=== PATIENT | female | born 1985 | race African-American/Black ===

== ENCOUNTER 2016-11-04 11:34 | Emergency (ER) | payer BC ==
[~2016-11-04] VITALS: Ht 157.5 cm; Wt 100.0 kg
[~2016-11-04 11:34] MED LIST: ALBU0.086 INH; LORA-392 PO; PRED20 PO; VENL75 PO; VENTAER INH
[2016-11-04] MEDS ORDERED: SODIUM CHLOR 0.9% 1000 ML INJ 1,000 ML IV SCH (11:42)
[2016-11-04] MEDS ORDERED: ACETAMINOPHEN 325 MG TAB PO ONE (11:45)
[2016-11-04] MEDS ORDERED: SODIUM CHLORIDE 0.9% FLUSH 5 ML FLUSH IVF PRN (11:45)
[2016-11-04 11:49] VITALS: BP 163/74; PULSE 81; RESP 18; TEMP 94.6
--- NOTE | 2016-11-04 11:56 | PD ---
HPI Chief Complaint: abdominal pain Time Seen by Provider: 11:50 Travel History International Travel<30 days: No Contact w/Intl Traveler<30days: No Traveled to known affect area: No History of Present Illness HPI 31 year-old female with history of fibromyalgia presents to the emergency room via ambulance for evaluation of nausea, vomiting, abdominal pain, chills, and lethargy for the past several hours. 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 States she became nauseous and went to the bathroom to try to have a bowel movement. She was unsuccessful. States shortly afterward she felt like she was going to pass out and laid down on the ground and called for help. Her coworkers called the ambulance. Patient denies an actual syncopal episode. States she vomited 2 times. Vomit was nonbloody, nonbilious. EVAC gave her 4 of Zofran which she states improved her symptoms. Patient denies any other chronic medical conditions or daily medications. Abdominal pain is periumbilical without radiation. Worse with palpation. PFSH Past Medical History Asthma: Yes Cancer: No Cardiovascular Problems: No Diabetes: No Headaches: No Psychiatric: Yes (depression, anxiety) Seizures: No Social History Alcohol Use: No Tobacco Use: Yes Substance Use: No Allergies-Medications (Allergen,Severity, Reaction): Coded Allergies: No Known Allergies (Unverified , 04/24/15) Reported Meds & Prescriptions Reported Meds & Active Scripts Active Zofran Odt (Ondansetron Odt) 4 Mg Tab 4 Mg SL Q6HR PRN Cipro (Ciprofloxacin HCl) 500 Mg Tab 500 Mg PO BID 7 Days Reported Tramadol (Tramadol HCl) 50 Mg Tab 50 Mg PO BID PRN Effexor (Venlafaxine HCl) 75 Mg Tab 75 Mg PO DAILY Ativan (Lorazepam) 1 Mg Tab 1 Mg PO BID Ventolin Hfa 18 GM Inh (Albuterol Sulfate) 90 Mcg/Act Aer 2 Puff INH Q4H PRN Albuterol Neb (Albuterol Sulfate) 2.5 Mg/3 Ml Neb 2.5 Mg NEB Q4HR NEB PRN Review of Systems Except as stated in HPI: all other systems reviewed are Neg Physical Exam Narrative GENERAL: Well-developed, obese female in no acute distress. Afebrile. SKIN: Warm and dry. HEAD: Atraumatic. Normocephalic. EYES: Pupils equal and round. No scleral icterus. No injection or drainage. NECK: Trachea midline. No JVD. CARDIOVASCULAR: Regular rate and rhythm. No murmur appreciated. RESPIRATORY: No accessory muscle use. Clear to auscultation. Breath sounds equal bilaterally. GASTROINTESTINAL: Abdomen soft, nondistended. Hepatic and splenic margins not palpable. Abdomen mildly tender to palpation over the umbilical region. Reports mild left lower quadrant tenderness to palpation. NEUROLOGICAL: Awake and alert. No obvious cranial nerve deficits. Motor grossly within normal limits. Normal speech. PSYCHIATRIC: Appropriate mood and affect; insight and judgment normal. Data Data Last Documented VS Vital Signs Date Time Temp Pulse Resp B/P Pulse Ox O2 Delivery O2 Flow Rate FiO2 11/04/16 16:30 99.5 83 18 161/85 97 11/04/16 15:02 Room Air Orders Complete Blood Count With Diff (11/04/16 11:42) Comprehensive Metabolic Panel (11/04/16 11:42) Lipase (11/04/16 11:42) Lactic Acid (11/04/16 11:42) Prothrombin Time / Inr (Pt) (11/04/16 11:42) Act Partial Throm Time (Ptt) (11/04/16 11:42) Urinalysis - C+S If Indicated (11/04/16 11:42) Ct Abd/Pel W Iv Contrast(Rout) (11/04/16 11:42) Iv Access Insert/Monitor (11/04/16 11:42) Ecg Monitoring (11/04/16 11:42) Oximetry (11/04/16 11:42) Sodium Chlor 0.9% 1000 Ml Inj (Ns 1000 M (11/04/16 11:42) Sodium Chloride 0.9% Flush (Ns Flush) (11/04/16 11:45) Electrocardiogram (11/04/16 11:42) Ed Urine Pregnancytest Poc (11/04/16 11:42) Acetaminophen (Tylenol) (11/04/16 11:45) Blood Culture (11/04/16 12:12) Influenzae A/B Antigen (11/04/16 12:49) Urine Culture (11/04/16 13:11) Iohexol 350 Inj (Omnipaque 350 Inj) (11/04/16 14:19) Lactic Acid (11/04/16 15:20) Labs Laboratory Tests Test 11/04/16 11/04/16 12:50 13:11 White Blood Count 8.8 TH/MM3 Red Blood Count 5.25 MIL/MM3 Hemoglobin 10.9 GM/DL Hematocrit 34.2 % Mean Corpuscular Volume 65.1 FL Mean Corpuscular Hemoglobin 20.7 PG Mean Corpuscular Hemoglobin 31.9 % Concent Red Cell Distribution Width 17.8 % Platelet Count 362 TH/MM3 Mean Platelet Volume 8.0 FL Neutrophils (%) (Auto) 78.8 % Lymphocytes (%) (Auto) 15.6 % Monocytes (%) (Auto) 4.2 % Eosinophils (%) (Auto) 1.0 % Basophils (%) (Auto) 0.4 % Neutrophils # (Auto) 6.9 TH/MM3 Lymphocytes # (Auto) 1.4 TH/MM3 Monocytes # (Auto) 0.4 TH/MM3 Eosinophils # (Auto) 0.1 TH/MM3 Basophils # (Auto) 0.0 TH/MM3 CBC Comment AUTO DIFF Differential Comment AUTO DIFF CONFIRMED Platelet Estimate NORMAL Platelet Morphology Comment NORMAL Target Cells 1+ Tear Drop Cells 1+ Prothrombin Time 10.9 SEC Prothromb Time International 1.0 RATIO Ratio Activated Partial 22.8 SEC Thromboplast Time Sodium Level 140 MEQ/L Potassium Level 3.5 MEQ/L Chloride Level 106 MEQ/L Carbon Dioxide Level 24.1 MEQ/L Anion Gap 10 MEQ/L Blood Urea Nitrogen 10 MG/DL Creatinine 0.70 MG/DL Estimat Glomerular Filtration 119 ML/MIN Rate Random Glucose 104 MG/DL Lactic Acid Level 2.1 mmol/L Calcium Level 9.0 MG/DL Total Bilirubin 0.1 MG/DL Aspartate Amino Transf 12 U/L (AST/SGOT) Alanine Aminotransferase 28 U/L (ALT/SGPT) Alkaline Phosphatase 138 U/L Total Protein 7.9 GM/DL Albumin 3.8 GM/DL Lipase 354 U/L Urine Color YELLOW Urine Turbidity HAZY Urine pH 5.0 Urine Specific [place] 1.023 Urine Protein TRACE mg/dL Urine Glucose (UA) NEG mg/dL Urine Ketones NEG mg/dL Urine Occult Blood NEG Urine Nitrite NEG Urine Bilirubin NEG Urine Urobilinogen LESS THAN 2.0 MG/DL Urine Leukocyte Esterase MOD Urine RBC 1 /hpf Urine WBC 4 /hpf Urine Squamous Epithelial 8 /hpf Cells Urine Bacteria MANY /hpf Urine Hyaline Casts 4 /lpf Urine Mucus FEW /lpf Microscopic Urinalysis Comment CULTURE INDICATED MDM Medical Decision Making Medical Screen Exam Complete: Yes Emergency Medical Condition: Yes Medical Record Reviewed: Yes Differential Diagnosis Gastroneuritis versus appendicitis versus diverticulosis Narrative Course 31-year-old female presents to the emergency room via ambulance for evaluation of nausea, vomiting, and weakness/near-syncope since this morning. Symptoms started abruptly. She has mild associated periumbilical pain. Abdomen soft, tender to palpation in the umbilical region but no peritoneal signs. Initial temperature was 94.6 rectally. Recheck was 99.5 orally. Vital signs otherwise stable. IV access established and basic labs obtained. Patient given 1 L of fluids and Tylenol. CBC and CMP are unremarkable. Lactic acid is slightly elevated at 2.1. UA shows evidence of infection with moderate leukocyte esterase and many bacteria. CT is negative. Rapid flu is negative. Given initial temperature and elevated lactic acid, blood cultures were drawn. I had my attending physician, Dr. Xiong, assessed the patient and agree she is stable for discharge. Patient will be discharged with prescription for urinary tract infection and told to follow up with the primary care physician and return for worsening symptoms. She understands and agrees to plan. Referrals: Primary Care Physician Scripts Ondansetron Odt (Zofran Odt)4 Mg Tab4 Mg SL Q6HR PRN (Nausea/Vomiting) #5 TAB Ref 0 Prov:Iftikhar Xiong MD 11/04/16 Ciprofloxacin (Cipro)500 Mg Tak717 Mg PO BID 7 Days Ref 0 Prov:Iftikhar Xiong MD 11/04/16 Disposition: 01 DISCHARGE HOME Condition: Stable Treva Mahoney Nov 04, 2016 11:56
[2016-11-04] MEDS ORDERED: VENL75TA PO (12:16)
[2016-11-04] MEDS ORDERED: VENTAER INH (12:16)
[2016-11-04] MEDS ORDERED: TRAM50TA PO (12:16)
[2016-11-04] MEDS ORDERED: ALBU0.08 NEB (12:16)
[2016-11-04] MEDS ORDERED: LORA-474 PO (12:16)
[2016-11-04 13:09] VITALS: O2SAT 96
[2016-11-04 13:11] VITALS: BP 159/83; PULSE 85; RESP 18; O2SAT 99
[2016-11-04 13:13] LABS: AUTOMATED NEUTROPHIL # 6.9 TH/MM3 (1.8-7.7); BASOPHIL % 0.4 % (0.0-2.0); EOSINOPHIL # 0.1 TH/MM3 (0-0.4); HEMATOCRIT 34.2 % (35.0-46.0); LYMPH % 15.6 % (9.0-44.0); LYMPHOCYTE # 1.4 TH/MM3 (1.0-4.8); MEAN CELL VOLUME 65.1 FL (80.0-100.0); MEAN CORPUSCULAR HEMOGLOBIN 20.7 PG (27.0-34.0); MEAN CORPUSCULAR HGB CONC 31.9 % (32.0-36.0); MONO % 4.2 % (0.0-8.0); NEUT % 78.8 % (16.0-70.0); PLATELET COUNT 362 TH/MM3 (150-450); RED BLOOD COUNT 5.25 MIL/MM3 (4.00-5.30); RED CELL DISTRIBUTION WIDTH 17.8 % (11.6-17.2); WHITE BLOOD COUNT 8.8 TH/MM3 (4.0-11.0)
[2016-11-04 13:14] LABS: APTT (PATIENT) 22.8 SEC (24.3-30.1); PROTHROMBIN TIME - PATIENT 10.9 SEC (9.8-11.6)
[2016-11-04 13:18] LABS: HEMO FLAGS AUTO DIFF
[2016-11-04 13:22] LABS: ANION GAP 10 MEQ/L (5-15); AST (GOT) 12 U/L (15-37); BICARBONATE 24.1 MEQ/L (21.0-32.0); BLOOD UREA NITROGEN 10 MG/DL (7-18); CHLORIDE 106 MEQ/L (98-107); GLOMERULAR FILTRATION RATE 119 ML/MIN (>89); POTASSIUM 3.5 MEQ/L (3.5-5.1); SODIUM (NA) 140 MEQ/L (136-145)
[2016-11-04 13:25] LABS: ALKALINE PHOSPHATASE 138 U/L (45-117); ALT (GPT) 28 U/L (10-53); TOTAL BILIRUBIN ADULT 0.1 MG/DL (0.2-1.0)
[2016-11-04 13:41] LABS: BACTERIA, URINE MANY /hpf; BLOOD, URINE NEG (NEG); GLUCOSE,URINE NEG (NEG); HYALINE CAST, URINE 4 /lpf (RARE); KETONE, URINE NEG (NEG); MUCUS URINE FEW /lpf (OCC); NITRITE,URINE NEG (NEG); SQUAMOUS EPITHELIAL CELL URINE 8 /hpf (0-5); URINE COLOR YELLOW (YELLW/STRAW)
[2016-11-04 13:52] LABS: COMMENT (UR) CULTURE INDICATED; CULTURE IF INDICATED CULTURE INDICATED
[2016-11-04 13:52] LABS: PLATELET ESTIMATE SMEAR NORMAL (NORMAL); PLATELET MORPHOLOGY NORMAL (NORMAL); SCAN/DIFF AUTO DIFF CONFIRMED
[2016-11-04 13:53] LABS: TARGET CELLS 1+ (NORMAL); TEARDROP RBCS 1+ (NORMAL)
[2016-11-04] MEDS ORDERED: IOHEXOL 350 MG/ML 10 ML VIAL (for RAD DIAG) IV ONE (14:19)
--- NOTE | 2016-11-04 14:59 | RADRPT ---
EXAM DATE/TIME: 11/04/2016 14:00 [facility] COMPARISON: No previous studies available for comparison. INDICATIONS : Periumbilical pain with nausea and vomiting. IV CONTRAST: 90 cc Omnipaque 350 (iohexol) IV ORAL CONTRAST: No oral contrast ingested. RADIATION DOSE: 12.02 CTDIvol (mGy) MEDICAL HISTORY : None SURGICAL HISTORY : None. ENCOUNTER: Initial ACUITY: 1 day PAIN SCALE: 4/10 LOCATION: Bilateral lower quadrant TECHNIQUE: Volumetric scanning of the abdomen and pelvis was performed. Using automated exposure control and adjustment of the mA and/or kV according to patient size, radiation dose was kept as low as reasonably achievable to obtain optimal diagnostic quality images. FINDINGS: LOWER LUNGS: The visualized lower lungs are clear. LIVER: Homogeneous density without lesion. There is no dilation of the biliary tree. No calcifi ed gallstones. SPLEEN: Normal size without lesion. PANCREAS: Within normal limits. KIDNEYS: Normal in size and shape. There is no mass, stone or hydronephrosis. ADRENAL GLANDS: Within normal limits. VASCULAR: There is no aortic aneurysm. BOWEL/MESENTERY: The stomach, small bowel, and colon demonstrate no acute abnormality. There is no free intraperitoneal air or fluid. There is a large stool burden noted. ABDOMINAL WALL: Within normal limits. RETROPERITONEUM: There is no lymphadenopathy. BLADDER: No wall thickening or mass. REPRODUCTIVE: The endometrium appears diffusely thickened. Given the patient's age this may be wi thin normal limits. INGUINAL: There is no lymphadenopathy or hernia. MUSCULOSKELETAL: Within normal limits for patient age. CONCLUSION: #1. No evidence of inflammatory process within the abdomen or pelvis. No evidence of umbilical hernia or stone. #2. Large stool burden is noted. #3. Thickening of the endometrium which given the patient's age may be normal. Correlate with the pat ient's LMP. Melani Dumont MD on November 04, 2016 at 14:55 Board Certified Radiologist. This report was verified electronically.
[2016-11-04 15:02] VITALS: BP 141/70; PULSE 88; RESP 18; O2SAT 98
[2016-11-04] MEDS ORDERED: ZOFR4TAB3 SL (15:15)
[2016-11-04] MEDS ORDERED: CIPR-9 PO (15:15)
--- NOTE | 2016-11-04 15:15 | PD ---
Physical Exam Date Seen by Provider: Nov 04, 2016 Time Seen by Provider: 12:30 Narrative I, Dr. Xiong, have reviewed the advance practice practitioner's documentation and am in agreement, met with the patient face to face, made the diagnosis, and the medical decision making was done by me. *My assessment and Findings: Patient seen and evaluated with PA, please see PA umu for further details. Here with nausea, chills, lethargy. On evaluation, vital signs are stable in the ER. Abdomen is benign and I do not suspect an acute intra-abdominal process. Patient has no meningeal signs. EKG did not show any signs of significant dysrhythmias. No signs of prolongation of QT or QRS prolongation. Laboratory Tests Test 11/04/16 11/04/16 12:50 13:11 Hemoglobin 10.9 GM/DL (11.6-15.3) Hematocrit 34.2 % (35.0-46.0) Mean Corpuscular Volume 65.1 FL (80.0-100.0) Mean Corpuscular Hemoglobin 20.7 PG (27.0-34.0) Mean Corpuscular Hemoglobin 31.9 % Concent (32.0-36.0) Red Cell Distribution Width 17.8 % (11.6-17.2) Neutrophils (%) (Auto) 78.8 % (16.0-70.0) Target Cells 1+ (NORMAL) Tear Drop Cells 1+ (NORMAL) Activated Partial 22.8 SEC Thromboplast Time (24.3-30.1) Lactic Acid Level 2.1 mmol/L (0.4-2.0) Total Bilirubin 0.1 MG/DL (0.2-1.0) Aspartate Amino Transf 12 U/L (15-37) (AST/SGOT) Alkaline Phosphatase 138 U/L (45-117) Urine Turbidity HAZY (CLEAR) Urine Leukocyte Esterase MOD (NEG) Urine Bacteria MANY /hpf (NONE) Urine Mucus FEW /lpf (OCC) CT of the abdomen pelvis did not indicate any significant metabolic issues. At this point, if anything lab work this point to possible early UTI. My plan would be to treat her for UTI and have her follow-up with primary care physician. Return for any worsening in symptoms as necessary. The plan was discussed with her and she states understanding. Data Data Last Documented VS Vital Signs Date Time Temp Pulse Resp B/P Pulse Ox O2 Delivery O2 Flow Rate FiO2 11/04/16 15:02 88 18 141/70 98 Room Air 11/04/16 11:49 94.6 Orders Complete Blood Count With Diff (11/04/16 11:42) Comprehensive Metabolic Panel (11/04/16 11:42) Lipase (11/04/16 11:42) Lactic Acid (11/04/16 11:42) Prothrombin Time / Inr (Pt) (11/04/16 11:42) Act Partial Throm Time (Ptt) (11/04/16 11:42) Urinalysis - C+S If Indicated (11/04/16 11:42) Ct Abd/Pel W Iv Contrast(Rout) (11/04/16 11:42) Iv Access Insert/Monitor (11/04/16 11:42) Ecg Monitoring (11/04/16 11:42) Oximetry (11/04/16 11:42) Sodium Chlor 0.9% 1000 Ml Inj (Ns 1000 M (11/04/16 11:42) Sodium Chloride 0.9% Flush (Ns Flush) (11/04/16 11:45) Electrocardiogram (11/04/16 11:42) Ed Urine Pregnancytest Poc (11/04/16 11:42) Acetaminophen (Tylenol) (11/04/16 11:45) Blood Culture (11/04/16 12:12) Influenzae A/B Antigen (11/04/16 12:49) Urine Culture (11/04/16 13:11) Iohexol 350 Inj (Omnipaque 350 Inj) (11/04/16 14:19) Labs Laboratory Tests Test 11/04/16 11/04/16 12:50 13:11 White Blood Count 8.8 TH/MM3 Red Blood Count 5.25 MIL/MM3 Hemoglobin 10.9 GM/DL Hematocrit 34.2 % Mean Corpuscular Volume 65.1 FL Mean Corpuscular Hemoglobin 20.7 PG Mean Corpuscular Hemoglobin 31.9 % Concent Red Cell Distribution Width 17.8 % Platelet Count 362 TH/MM3 Mean Platelet Volume 8.0 FL Neutrophils (%) (Auto) 78.8 % Lymphocytes (%) (Auto) 15.6 % Monocytes (%) (Auto) 4.2 % Eosinophils (%) (Auto) 1.0 % Basophils (%) (Auto) 0.4 % Neutrophils # (Auto) 6.9 TH/MM3 Lymphocytes # (Auto) 1.4 TH/MM3 Monocytes # (Auto) 0.4 TH/MM3 Eosinophils # (Auto) 0.1 TH/MM3 Basophils # (Auto) 0.0 TH/MM3 CBC Comment AUTO DIFF Differential Comment AUTO DIFF CONFIRMED Platelet Estimate NORMAL Platelet Morphology Comment NORMAL Target Cells 1+ Tear Drop Cells 1+ Prothrombin Time 10.9 SEC Prothromb Time International 1.0 RATIO Ratio Activated Partial 22.8 SEC Thromboplast Time Sodium Level 140 MEQ/L Potassium Level 3.5 MEQ/L Chloride Level 106 MEQ/L Carbon Dioxide Level 24.1 MEQ/L Anion Gap 10 MEQ/L Blood Urea Nitrogen 10 MG/DL Creatinine 0.70 MG/DL Estimat Glomerular Filtration 119 ML/MIN Rate Random Glucose 104 MG/DL Lactic Acid Level 2.1 mmol/L Calcium Level 9.0 MG/DL Total Bilirubin 0.1 MG/DL Aspartate Amino Transf 12 U/L (AST/SGOT) Alanine Aminotransferase 28 U/L (ALT/SGPT) Alkaline Phosphatase 138 U/L Total Protein 7.9 GM/DL Albumin 3.8 GM/DL Lipase 354 U/L Urine Color YELLOW Urine Turbidity HAZY Urine pH 5.0 Urine Specific [place] 1.023 Urine Protein TRACE mg/dL Urine Glucose (UA) NEG mg/dL Urine Ketones NEG mg/dL Urine Occult Blood NEG Urine Nitrite NEG Urine Bilirubin NEG Urine Urobilinogen LESS THAN 2.0 MG/DL Urine Leukocyte Esterase MOD Urine RBC 1 /hpf Urine WBC 4 /hpf Urine Squamous Epithelial 8 /hpf Cells Urine Bacteria MANY /hpf Urine Hyaline Casts 4 /lpf Urine Mucus FEW /lpf Microscopic Urinalysis Comment CULTURE INDICATED MDM Medical Record Reviewed: Yes Supervised Visit with YURI: Yes Diagnosis Primary Impression: Near syncope Additional Impression: URINARY TRACT INFECTION, SITE NOT SPECIFIED Referrals: Primary Care Physician Med/Other Pt SpecificInfo: Prescription(s) given Scripts Ondansetron Odt (Zofran Odt)4 Mg Tab4 Mg SL Q6HR PRN (Nausea/Vomiting) #5 TAB Ref 0 Prov:Iftikhar Xiong MD 11/04/16 Ciprofloxacin (Cipro)500 Mg Acb007 Mg PO BID 7 Days Ref 0 Prov:Iftikhar Xiong MD 11/04/16 Disposition: 01 DISCHARGE HOME Condition: Stable Iftikhar Xiong MD Nov 04, 2016 15:15
[2016-11-04 16:30] VITALS: BP 161/85; TEMP 99.5
--- NOTE | 2016-11-05 21:24 | EKG ---
Date Performed: 11/04/2016 Time Performed: 12:15:19 PTAGE: 31 years EKG: Sinus rhythm NORMAL ECG NO PREVIOUS TRACING DOCTOR: Bob Carolina Interpretating Date/Time 11/05/2016 21:11:59
[2017-03-11] MEDS ORDERED: PREN1CAP7 PO (15:35)
[2017-04-06] MEDS ORDERED: AMOX500C PO (16:08)
[2017-04-08] MEDS ORDERED: AMOX500C PO (08:38)
== END 2016-11-04 16:48 | disposition home or self-care (01) ==
LOC: NEPC 11:34
DX: N39.0 Urinary tract infection, site not specified (principal); F41.8 Other specified anxiety disorders
CPT/HCPCS: 74177; 80053; 81001; 83605; 83690; 84703; 85025; 85610; 85730; 87040; 87086; 87804; 93005; 96360; 99284; J7030; Q9967

== ENCOUNTER 2017-01-18 08:52 | Emergency (ER) | payer SELFPAY ==
[~2017-01-18] VITALS: Ht 154.9 cm; Wt 100.0 kg
[~2017-01-18 08:52] MED LIST changes: +ALBU0.08 NEB; -ALBU0.086 INH; +CIPR-9 PO; -LORA-392 PO; +LORA-474 PO; -PRED20 PO; +TRAM50TA PO; -VENL75 PO; +VENL75TA PO; +ZOFR4TAB3 SL
[2017-01-18 09:01] VITALS: BP 163/85; PULSE 71; RESP 18; RESP 21; TEMP 97.8; O2SAT 100
--- NOTE | 2017-01-18 09:16 | PD ---
HPI Chief Complaint: GI Complaint Time Seen by Provider: 09:15 Travel History International Travel<30 days: No Contact w/Intl Traveler<30days: No Traveled to known affect area: No History of Present Illness HPI 31-year-old female came to the emergency room brought by EMS with history of sudden onset of abdominal pain that started this morning. Patient was awake and it woke her up from her sleep. She got nauseous and went to the bathroom. She was unable to vomit but got dizzy and lightheaded and felt like she was going to pass out. She did out on the floor and called 911. In the meanwhile she had a diarrhea episode and soiled herself. Patient never actually had a syncopal episode. Currently she says the pain is still there and points to her suprapubic area. No radiation of the pain. She is currently on her period. She had a similar pain 3 months ago and was in this emergency room when she had workup as well as CAT scan done. She was supposed to follow up with a [employer]PER[facility] and get an ultrasound which has not happened yet. She said there is a family history of ovarian cyst. [facility] Past Medical History Narrative Medical List of her past medical, surgical, social and family history was reviewed from the nursing note. Asthma: Yes Cancer: No Cardiovascular Problems: Yes (HTN ) Diabetes: No Fibromyalgia: Yes Headaches: No Psychiatric: Yes (depression, anxiety) Seizures: No ?: Not LMP: NOW Social History Alcohol Use: No Tobacco Use: Yes (/2 ppd) Substance Use: No Allergies-Medications (Allergen,Severity, Reaction): Coded Allergies: No Known Allergies (Unverified , 01/18/17) Comments No known drug allergies. Reported Meds & Prescriptions Reported Meds & Active Scripts Active Zofran Odt (Ondansetron Odt) 4 Mg Tab 4 Mg SL Q6HR PRN Cipro (Ciprofloxacin HCl) 500 Mg Tab 500 Mg PO BID 7 Days Reported Tramadol (Tramadol HCl) 50 Mg Tab 50 Mg PO BID PRN Effexor (Venlafaxine HCl) 75 Mg Tab 75 Mg PO DAILY Ativan (Lorazepam) 1 Mg Tab 1 Mg PO BID Ventolin Hfa 18 GM Inh (Albuterol Sulfate) 90 Mcg/Act Aer 2 Puff INH Q4H PRN Albuterol Neb (Albuterol Sulfate) 2.5 Mg/3 Ml Neb 2.5 Mg NEB Q4HR NEB PRN Narrative Medication List of her home medications reviewed from the nursing note. Review of Systems Except as stated in HPI: all other systems reviewed are Neg Physical Exam Narrative GENERAL: Awake, alert, obese, moderate distress SKIN: Focused skin assessment warm/dry. HEAD: Atraumatic. Normocephalic. EYES: Pupils equal and round. No scleral icterus. No injection or drainage. ENT: No nasal bleeding or discharge. Mucous membranes pink and moist. NECK: Trachea midline. No JVD. CARDIOVASCULAR: Regular rate and rhythm. No murmur appreciated. RESPIRATORY: No accessory muscle use. Clear to auscultation. Breath sounds equal bilaterally. GASTROINTESTINAL: Abdomen soft, non-tender, nondistended. Hepatic and splenic margins not palpable. MUSCULOSKELETAL: No obvious deformities. No clubbing. No cyanosis. No edema. NEUROLOGICAL: Awake and alert. No obvious cranial nerve deficits. Motor grossly within normal limits. Normal speech. PSYCHIATRIC: Appropriate mood and affect; insight and judgment normal. Data Data Last Documented VS Vital Signs Date Time Temp Pulse Resp B/P Pulse Ox O2 Delivery O2 Flow Rate FiO2 01/18/17 14:16 75 16 140/72 98 01/18/17 12:00 Room Air 01/18/17 09:01 97.8 Orders Beta Hcg (Quant/Titer) (01/18/17 09:21) Complete Blood Count With Diff (01/18/17 09:21) Comprehensive Metabolic Panel (01/18/17 09:21) Lipase (01/18/17 09:21) Urinalysis - C+S If Indicated (01/18/17 09:21) Iv Access Insert/Monitor (01/18/17 09:21) Ecg Monitoring (01/18/17 09:21) Oximetry (01/18/17 09:21) Sodium Chlor 0.9% 1000 Ml Inj (Ns 1000 M (01/18/17 09:21) Sodium Chloride 0.9% Flush (Ns Flush) (01/18/17 09:30) Abdomen, Single View (01/18/17 ) Stool [employer] Culture And Stain (01/18/17 09:27) Labs Laboratory Tests Test 01/18/17 01/18/17 09:45 10:15 White Blood Count 8.2 TH/MM3 Red Blood Count 5.14 MIL/MM3 Hemoglobin 10.6 GM/DL Hematocrit 33.8 % Mean Corpuscular Volume 65.7 FL Mean Corpuscular Hemoglobin 20.6 PG Mean Corpuscular Hemoglobin 31.4 % Concent Red Cell Distribution Width 18.5 % Platelet Count 337 TH/MM3 Mean Platelet Volume 8.0 FL Neutrophils (%) (Auto) 68.3 % Lymphocytes (%) (Auto) 22.1 % Monocytes (%) (Auto) 6.6 % Eosinophils (%) (Auto) 2.4 % Basophils (%) (Auto) 0.6 % Neutrophils # (Auto) 5.6 TH/MM3 Lymphocytes # (Auto) 1.8 TH/MM3 Monocytes # (Auto) 0.5 TH/MM3 Eosinophils # (Auto) 0.2 TH/MM3 Basophils # (Auto) 0.1 TH/MM3 CBC Comment AUTO DIFF Differential Comment AUTO DIFF CONFIRMED Sodium Level 141 MEQ/L Potassium Level 3.8 MEQ/L Chloride Level 107 MEQ/L Carbon Dioxide Level 24.7 MEQ/L Anion Gap 9 MEQ/L Blood Urea Nitrogen 9 MG/DL Creatinine 0.66 MG/DL Estimat Glomerular Filtration 127 ML/MIN Rate Random Glucose 106 MG/DL Calcium Level 8.5 MG/DL Total Bilirubin 0.1 MG/DL Aspartate Amino Transf 12 U/L (AST/SGOT) Alanine Aminotransferase 27 U/L (ALT/SGPT) Alkaline Phosphatase 120 U/L Total Protein 7.3 GM/DL Albumin 3.7 GM/DL Lipase 122 U/L Human Chorionic Gonadotropin, LESS THAN 1 Quant MIU/ML Urine Color YELLOW Urine Turbidity CLEAR Urine pH 7.5 Urine Specific [place] 1.016 Urine Protein NEG mg/dL Urine Glucose (UA) NEG mg/dL Urine Ketones NEG mg/dL Urine Occult Blood LARGE Urine Nitrite NEG Urine Bilirubin NEG Urine Urobilinogen LESS THAN 2.0 MG/DL Urine Leukocyte Esterase NEG Urine RBC 58 /hpf Urine WBC 1 /hpf Urine Squamous Epithelial 3 /hpf Cells Urine Mucus FEW /lpf Microscopic Urinalysis Comment CULT NOT INDICATED MDM Medical Decision Making Medical Screen Exam Complete: Yes Emergency Medical Condition: Yes Medical Record Reviewed: Yes Differential Diagnosis UTI, ovarian cyst, acute gastric enteritis, abdominal pain NOS Narrative Course 10:28 AM awaiting for the blood test results to come back. At ordered a plain x -ray since last time when she was here she was told she had large amount of stool burden in her colon. 12:32 PM all the test results came back to be within acceptable limits. Urine has blood in it but she also has her period. I will discharge her home. Procedures EKG Prior to Arrival: No Diagnosis Primary Impression: Pelvic pain Additional Impressions: Vasovagal attack Diarrhea Qualified Code: R19.7 - Diarrhea, unspecified type Referrals: Primary Care Physician 2 days Additional Instructions: Please follow-up with your [employer] OPERATOR. Please return to the ER if the condition worsens or any other new concerns. Otherwise drink lots of fluid and take Motrin/ibuprofen/Advil for pain. Med/Other Pt SpecificInfo: No Change to Meds Disposition: 01 DISCHARGE HOME Condition: Stable Vicente Tafoya MD Jan 18, 2017 09:16
[2017-01-18] MEDS ORDERED: SODIUM CHLOR 0.9% 1000 ML INJ 1,000 ML IV SCH (09:21)
[2017-01-18] MEDS ORDERED: SODIUM CHLORIDE 0.9% FLUSH 10 ML FLUSH IV FLUSH PRN (09:30)
[2017-01-18 10:05] LABS: AUTOMATED NEUTROPHIL # 5.6 TH/MM3 (1.8-7.7); BASOPHIL # 0.1 TH/MM3 (0-0.2); BASOPHIL % 0.6 % (0.0-2.0); EOSINOPHIL # 0.2 TH/MM3 (0-0.4); EOSINOPHIL % 2.4 % (0.0-4.0); HEMATOCRIT 33.8 % (35.0-46.0); HEMO FLAGS AUTO DIFF; LYMPH % 22.1 % (9.0-44.0); LYMPHOCYTE # 1.8 TH/MM3 (1.0-4.8); MEAN CELL VOLUME 65.7 FL (80.0-100.0); MEAN CORPUSCULAR HEMOGLOBIN 20.6 PG (27.0-34.0); MEAN CORPUSCULAR HGB CONC 31.4 % (32.0-36.0); MONO % 6.6 % (0.0-8.0); NEUT % 68.3 % (16.0-70.0); PLATELET COUNT 337 TH/MM3 (150-450); RED BLOOD COUNT 5.14 MIL/MM3 (4.00-5.30); RED CELL DISTRIBUTION WIDTH 18.5 % (11.6-17.2); WHITE BLOOD COUNT 8.2 TH/MM3 (4.0-11.0)
[2017-01-18 10:24] VITALS: BP 160/82; PULSE 74; RESP 21; O2SAT 97
[2017-01-18 10:24] LABS: ANION GAP 9 MEQ/L (5-15); AST (GOT) 12 U/L (15-37); BICARBONATE 24.7 MEQ/L (21.0-32.0); BLOOD UREA NITROGEN 9 MG/DL (7-18); CHLORIDE 107 MEQ/L (98-107); GLOMERULAR FILTRATION RATE 127 ML/MIN (>89); POTASSIUM 3.8 MEQ/L (3.5-5.1); SODIUM (NA) 141 MEQ/L (136-145)
--- NOTE | 2017-01-18 10:30 | RADRPT ---
EXAM DATE/TIME: 01/18/2017 10:34 [facility] COMPARISON: CHEST SINGLE AP, December 15, 2015, 0:00. INDICATIONS : Patient states lower badominal pain that started this morning. MEDICAL HISTORY : None. SURGICAL HISTORY : None. ENCOUNTER: Initial ACUITY: 1 day PAIN SCORE: 2/10 LOCATION: Bilateral Abdomen FINDINGS: Examination of the abdomen demonstrates a normal bowel gas pattern. No free air is identified. No o rganomegaly is evident. Osseous structures are intact. CONCLUSION: Benign-appearing KUB. Obey Lott MD on January 18, 2017 at 10:28 Board Certified Radiologist. This report was verified electronically.
[2017-01-18 10:34] LABS: SCAN/DIFF AUTO DIFF CONFIRMED
[2017-01-18 10:38] LABS: ALKALINE PHOSPHATASE 120 U/L (45-117); ALT (GPT) 27 U/L (10-53); BETA HCG QUANT LESS THAN 1 MIU/ML (0-5); TOTAL BILIRUBIN ADULT 0.1 MG/DL (0.2-1.0)
[2017-01-18 11:01] LABS: BLOOD, URINE LARGE (NEG); GLUCOSE,URINE NEG (NEG); KETONE, URINE NEG (NEG); MUCUS URINE FEW /lpf (OCC); NITRITE,URINE NEG (NEG); PH, URINE 7.5 (5.0-8.5); SQUAMOUS EPITHELIAL CELL URINE 3 /hpf (0-5); URINE COLOR YELLOW (YELLW/STRAW)
[2017-01-18 11:05] LABS: COMMENT (UR) CULT NOT INDICATED; CULTURE IF INDICATED CULT NOT INDICATED
[2017-01-18 12:00] VITALS: BP 145/68; PULSE 87; RESP 16; O2SAT 97
[2017-01-18 14:16] VITALS: BP 140/72
[2017-03-11] MEDS ORDERED: PREN1CAP7 PO (15:35)
[2017-04-06] MEDS ORDERED: AMOX500C PO (16:08)
[2017-04-08] MEDS ORDERED: AMOX500C PO (08:38)
== END 2017-01-18 14:19 | disposition home or self-care (01) ==
LOC: NEPC 08:52
DX: R10.2 Pelvic and perineal pain (principal); R55 Syncope and collapse; R19.7 Diarrhea, unspecified; F17.210 Nicotine dependence, cigarettes, uncomplicated; I10 Essential (primary) hypertension; M79.7 Fibromyalgia
CPT/HCPCS: 74000; 80053; 81001; 83690; 84702; 85025; 87015; 96360; 99284; J7030

== ENCOUNTER 2017-07-20 12:45 | Emergency (ER) | payer SELFPAY ==
[~2017-07-20 12:45] MED LIST changes: -CIPR-9 PO; -LORA-474 PO; +PREN1CAP7 PO; -TRAM50TA PO; -VENL75TA PO; +VENL75XR PO; -ZOFR4TAB3 SL
[2017-07-20 12:48] VITALS: BP 135/77; PULSE 111; RESP 24; TEMP 98.5; O2SAT 98
--- NOTE | 2017-07-20 13:13 | PD ---
Physical Exam Time Seen by Provider: 13:11 Narrative 31 year old female who is 26 weeks gestation followed by Dr. Weinberg presents to ED for evaluation of shortness of breath worsening over the last two days with associated dizziness. Feels like she cannot get enough breath. Denies chest pain. Nausea without vomiting. No fever or chills. No headache. Has history of asthma. No abd cramping. No vaginal bleeding. No other symptoms Data Data Last Documented VS Vital Signs Date Time Temp Pulse Resp B/P (MAP) Pulse Ox O2 Delivery O2 Flow Rate FiO2 07/20/17 13:55 97 07/20/17 12:48 98.5 111 24 Room Air Orders Orders Complete Blood Count With Diff (07/20/17 13:26) Basic Metabolic Panel (Bmp) (07/20/17 13:26) Urinalysis - C+S If Indicated (07/20/17 13:26) Iv Access Insert/Monitor (07/20/17 13:26) Electrocardiogram (07/20/17 13:26) Ecg Monitoring (07/20/17:26) Oximetry (07/20/17:26) Oxygen Administration (07/20/17 13:26) Sodium Chloride 0.9% Flush (Ns Flush) (07/20/17 13:30) Type And Screen (07/20/17 13:26) Heart Tones (07/20/17 13:27) D-Dimer (07/20/17 14:19) Electrocardiogram (07/20/17 14:23) Chest, Single Ap (07/20/17 14:23) Labs Laboratory Tests Test 07/20/17 13:40 White Blood Count 11.9 TH/MM3 Red Blood Count 4.53 MIL/MM3 Hemoglobin 10.0 GM/DL Hematocrit 31.5 % Mean Corpuscular Volume 69.6 FL Mean Corpuscular Hemoglobin 22.1 PG Mean Corpuscular Hemoglobin Concent 31.8 % Red Cell Distribution Width 16.6 % Platelet Count 329 TH/MM3 Mean Platelet Volume 8.4 FL Neutrophils (%) (Auto) 74.9 % Lymphocytes (%) (Auto) 15.9 % Monocytes (%) (Auto) 6.4 % Eosinophils (%) (Auto) 2.4 % Basophils (%) (Auto) 0.4 % Neutrophils # (Auto) 8.9 TH/MM3 Lymphocytes # (Auto) 1.9 TH/MM3 Monocytes # (Auto) 0.8 TH/MM3 Eosinophils # (Auto) 0.3 TH/MM3 Basophils # (Auto) 0.1 TH/MM3 CBC Comment DIFF FINAL Differential Comment Urine Color YELLOW Urine Turbidity HAZY Urine pH 7.0 Urine Specific [place] 1.022 Urine Protein TRACE mg/dL Urine Glucose (UA) 150 mg/dL Urine Ketones NEG mg/dL Urine Occult Blood NEG Urine Nitrite NEG Urine Bilirubin NEG Urine Urobilinogen LESS THAN 2.0 MG/DL Urine Leukocyte Esterase NEG Urine RBC LESS THAN 1 /hpf Urine WBC 1 /hpf Urine Squamous Epithelial Cells 9 /hpf Urine Bacteria OCC /hpf Microscopic Urinalysis Comment CULT NOT INDICATED Blood Urea Nitrogen 7 MG/DL Creatinine 0.48 MG/DL Random Glucose 104 MG/DL Calcium Level 8.9 MG/DL Sodium Level 139 MEQ/L Potassium Level 3.7 MEQ/L Chloride Level 107 MEQ/L Carbon Dioxide Level 23.2 MEQ/L Anion Gap 9 MEQ/L Estimat Glomerular Filtration Rate 184 ML/MIN [facility] Medical Record Reviewed: Yes Supervised Visit with YURI: No Condition: Stable Luh Stahl Jul 20, 2017 13:13
[2017-07-20] MEDS ORDERED: SODIUM CHLORIDE 0.9% FLUSH 10 ML FLUSH IVF PRN (13:30)
[2017-07-20 13:55] VITALS: O2SAT 97
[2017-07-20 14:07] LABS: AUTOMATED NEUTROPHIL # 8.9 TH/MM3 (1.8-7.7); BASOPHIL # 0.1 TH/MM3 (0-0.2); BASOPHIL % 0.4 % (0.0-2.0); EOSINOPHIL # 0.3 TH/MM3 (0-0.4); EOSINOPHIL % 2.4 % (0.0-4.0); HEMATOCRIT 31.5 % (35.0-46.0); HEMO FLAGS DIFF FINAL; LYMPH % 15.9 % (9.0-44.0); LYMPHOCYTE # 1.9 TH/MM3 (1.0-4.8); MEAN CELL VOLUME 69.6 FL (80.0-100.0); MEAN CORPUSCULAR HEMOGLOBIN 22.1 PG (27.0-34.0); MEAN CORPUSCULAR HGB CONC 31.8 % (32.0-36.0); MONO % 6.4 % (0.0-8.0); NEUT % 74.9 % (16.0-70.0); PLATELET COUNT 329 TH/MM3 (150-450); RED BLOOD COUNT 4.53 MIL/MM3 (4.00-5.30); RED CELL DISTRIBUTION WIDTH 16.6 % (11.6-17.2); WHITE BLOOD COUNT 11.9 TH/MM3 (4.0-11.0)
[2017-07-20 14:08] LABS: BACTERIA, URINE OCC /hpf; BLOOD, URINE NEG (NEG); COMMENT (UR) CULT NOT INDICATED; CULTURE IF INDICATED CULT NOT INDICATED; GLUCOSE,URINE 150 mg/dL (NEG); KETONE, URINE NEG (NEG); NITRITE,URINE NEG (NEG); SQUAMOUS EPITHELIAL CELL URINE 9 /hpf (0-5); URINE COLOR YELLOW (YELLW/STRAW)
[2017-07-20 14:21] LABS: BICARBONATE 23.2 MEQ/L (21.0-32.0); POTASSIUM 3.7 MEQ/L (3.5-5.1)
--- NOTE | 2017-07-20 14:25 | PD ---
HPI Chief Complaint: Respiratory Distress Time Seen by Provider: 13:25 Travel History International Travel<30 days: No Contact w/Intl Traveler<30days: No Traveled to known affect area: No History of Present Illness HPI 31-year-old female who is 23 weeks , history of thalassemia, presents to the ER today because she has had several weeks of shortness of breath and dyspnea on exertion. She has history of asthma and her primary W[employer]OW SYSTEMS ADMINISTRATOR had given her albuterol which she states is not helping. She is here today because of ongoing symptoms. She denies any fevers, abdominal pains, chest pains, or other symptoms. Modifying Factors: None Associated Signs & Symptoms: Dyspnea on exertion for several weeks Risk Factors: History of thalassemia, PFSH Past Medical History Asthma: Yes Anxiety: Yes Depression: Yes Cancer: No Cardiovascular Problems: Yes Diabetes: No Fibromyalgia: Yes Headaches: No Hypertension: Yes Psychiatric: Yes Seizures: No ?: LMP: 01/14/17 : 1 Para: 0 Past Surgical History Surgical History: No Previous Surgery Social History Alcohol Use: No Tobacco Use: Yes (10/19 ppd) Substance Use: No Allergies-Medications (Allergen,Severity, Reaction): Coded Allergies: cat dander (Verified Allergy, Mild, Itching, sneezing, 07/20/17) Reported Meds & Prescriptions Reported Meds & Active Scripts Active Effexor XR 24 HR (Venlafaxine HCl) 75 Mg Cap 75 Mg PO DAILY Citranatal [place] ( W/O Vit A W/ Fe Fumar) 27-1-260 Mg Cap 1 Cap PO DAILY Reported Ventolin Hfa 18 GM Inh (Albuterol Sulfate) 90 Mcg/Act Aer 2 Puff INH Q4H PRN Albuterol Neb (Albuterol Sulfate) 2.5 Mg/3 Ml Neb 2.5 Mg NEB Q4HR NEB PRN Review of Systems Except as stated in HPI: all other systems reviewed are Neg Physical Exam Narrative GENERAL: Well-developed young -Filipino female patient currently in mild distress. Awake and oriented 3. SKIN: Focused skin assessment warm/dry. HEAD: Atraumatic. Normocephalic. EYES: Pupils equal and round. No scleral icterus. No injection or drainage. ENT: No nasal bleeding or discharge. Mucous membranes pink and moist. NECK: Trachea midline. No JVD. CARDIOVASCULAR: Regular rate and rhythm. No murmur appreciated. RESPIRATORY: No accessory muscle use. Clear to auscultation. Breath sounds equal bilaterally. GASTROINTESTINAL: Abdomen soft, non-tender, nondistended. Hepatic and splenic margins not palpable. MUSCULOSKELETAL: No obvious deformities. No clubbing. No cyanosis. No edema. NEUROLOGICAL: Awake and alert. No obvious cranial nerve deficits. Motor grossly within normal limits. Normal speech. PSYCHIATRIC: Appropriate mood and affect; insight and judgment normal. Data Data Last Documented VS Vital Signs Date Time Temp Pulse Resp B/P (MAP) Pulse Ox O2 Delivery O2 Flow Rate FiO2 07/20/17 13:55 97 07/20/17 12:48 98.5 111 24 Room Air Orders Orders Complete Blood Count With Diff (07/20/17 13:26) Basic Metabolic Panel (Bmp) (07/20/17 13:26) Urinalysis - C+S If Indicated (07/20/17 13:26) Iv Access Insert/Monitor (07/20/17 13:26) Electrocardiogram (07/20/17 13:26) Ecg Monitoring (07/20/17 13:26) Oximetry (07/20/17 13:26) Oxygen Administration (07/20/17 13:26) Sodium Chloride 0.9% Flush (Ns Flush) (07/20/17 13:30) Type And Screen (07/20/17 13:26) Heart Tones (07/20/17 13:27) D-Dimer (07/20/17 14:19) Electrocardiogram (07/20/17 14:23) Chest, Single Ap (07/20/17 14:23) Labs Laboratory Tests Test 07/20/17 13:15 07/20/17 13:40 D-Dimer Quantitative (PE/DVT) 0.39 MG/L FEU White Blood Count 11.9 TH/MM3 Red Blood Count 4.53 MIL/MM3 Hemoglobin 10.0 GM/DL Hematocrit 31.5 % Mean Corpuscular Volume 69.6 FL Mean Corpuscular Hemoglobin 22.1 PG Mean Corpuscular Hemoglobin Concent 31.8 % Red Cell Distribution Width 16.6 % Platelet Count 329 TH/MM3 Mean Platelet Volume 8.4 FL Neutrophils (%) (Auto) 74.9 % Lymphocytes (%) (Auto) 15.9 % Monocytes (%) (Auto) 6.4 % Eosinophils (%) (Auto) 2.4 % Basophils (%) (Auto) 0.4 % Neutrophils # (Auto) 8.9 TH/MM3 Lymphocytes # (Auto) 1.9 TH/MM3 Monocytes # (Auto) 0.8 TH/MM3 Eosinophils # (Auto) 0.3 TH/MM3 Basophils # (Auto) 0.1 TH/MM3 CBC Comment DIFF FINAL Differential Comment Urine Color YELLOW Urine Turbidity HAZY Urine pH 7.0 Urine Specific [place] 1.022 Urine Protein TRACE mg/dL Urine Glucose (UA) 150 mg/dL Urine Ketones NEG mg/dL Urine Occult Blood NEG Urine Nitrite NEG Urine Bilirubin NEG Urine Urobilinogen LESS THAN 2.0 MG/DL Urine Leukocyte Esterase NEG Urine RBC LESS THAN 1 /hpf Urine WBC 1 /hpf Urine Squamous Epithelial Cells 9 /hpf Urine Bacteria OCC /hpf Microscopic Urinalysis Comment CULT NOT INDICATED Blood Urea Nitrogen 7 MG/DL Creatinine 0.48 MG/DL Random Glucose 104 MG/DL Calcium Level 8.9 MG/DL Sodium Level 139 MEQ/L Potassium Level 3.7 MEQ/L Chloride Level 107 MEQ/L Carbon Dioxide Level 23.2 MEQ/L Anion Gap 9 MEQ/L Estimat Glomerular Filtration Rate 184 ML/MIN [facility] Medical Decision Making Medical Screen Exam Complete: Yes Emergency Medical Condition: Yes Medical Record Reviewed: Yes Interpretation(s) EKG shows NSR, no ST elevation or depression, and no arrhythmias. No significant T-wave inversions. Laboratory Tests Test 07/20/17 13:15 07/20/17 13:40 White Blood Count 11.9 TH/MM3 (4.0-11.0) Hemoglobin 10.0 GM/DL (11.6-15.3) Hematocrit 31.5 % (35.0-46.0) Mean Corpuscular Volume 69.6 FL (80.0-100.0) Mean Corpuscular Hemoglobin 22.1 PG (27.0-34.0) Mean Corpuscular Hemoglobin Concent 31.8 % (32.0-36.0) Neutrophils (%) (Auto) 74.9 % (16.0-70.0) Neutrophils # (Auto) 8.9 TH/MM3 (1.8-7.7) Urine Turbidity HAZY (CLEAR) Urine Glucose (UA) 150 mg/dL (NEG) Urine Bacteria OCC /hpf (NONE) Creatinine 0.48 MG/DL (0.50-1.00) Differential Diagnosis Dyspnea on exertion, shortness of breath: Dysrhythmias versus symptomatic anemia versus pneumonia versus PE Narrative Course EKG did not show significant arrhythmias. Chest x-ray was unremarkable. He d- dimer is negative. Lab work was otherwise unremarkable and she is not significantly anemic with a hemoglobin of 10. At this point, my plan would be to release her and have her continue albuterol as needed. Follow-up with primary care and [employer]OW SYSTEMS ADMINISTRATOR. Return for any worsening in symptoms as necessary. The plan has been discussed with her and she states understanding. Diagnosis Primary Impression: Shortness of breath due to Disposition: 01 DISCHARGE HOME Condition: Stable Iftikhar Xiong MD Jul 20, 2017 14:25
--- NOTE | 2017-07-20 14:49 | RADRPT ---
EXAM DATE/TIME: 07/20/2017 14:41 [place] COMPARISON: CHEST SINGLE AP, December 15, 2015, 0:00. INDICATIONS : Short of breath for two weeks. MEDICAL HISTORY : None. SURGICAL HISTORY : None. ENCOUNTER: Initial ACUITY: 2 weeks PAIN SCORE: 0/10 LOCATION: Bilateral chest FINDINGS: A single view of the chest demonstrates the lungs to be symmetrically aerated without evidence of mas s, infiltrate or effusion. The cardiomediastinal contours are unremarkable. Osseous structures are intact. CONCLUSION: 1. No acute cardiopulmonary disease. Vincenzo Lugo MD on July 20, 2017 at 14:47 Board Certified Radiologist. This report was verified electronically.
--- NOTE | 2017-07-21 14:18 | EKG ---
Date Performed: 07/20/2017 Time Performed: 15:24:17 PTAGE: 31 years EKG: Sinus rhythm NONSPECIFIC T WAVE ABNORMALITY BORDERLINE ECG PREVIOUS TRACING : 11/04/2016 12.15 DOCTOR: Noah Deshpande Interpretating Date/Time 07/21/2017 14:18:09
== END 2017-07-20 16:44 | disposition home or self-care (01) ==
LOC: NEPC 12:45
DX: O26.892 Other specified pregnancy related conditions, second trimester (principal); R06.02 Shortness of breath; Z3A.23 23 weeks gestation of pregnancy
CPT/HCPCS: 71010; 80048; 81001; 85025; 85379; 86850; 86900; 86901; 93005

== ENCOUNTER 2017-09-21 17:15 | Observation (INO) | payer MEDICAID ==
[~2017-09-21] VITALS: Ht 154.9 cm; Wt 109.0 kg
[~2017-09-21 17:15] MED LIST changes: +GLYB5TAB3 PO
[2017-09-21] MEDS ORDERED: GLUCAGON 1 MG/ML VIAL IM PRN (18:30)
[2017-09-21] MEDS ORDERED: DEXTROSE 50% IN WATER 50 ML VIAL(D50) IV PUSH PRN (18:30)
--- NOTE | 2017-09-21 18:31 | HHI.HP ---
HPI Chief Complaint gestational DM Date Seen: Sep 21, 2017 Time Seen: 18:20 (Clementine Robledo MD R2) Travel History International Travel<30 Days: No Contact w/Intl Traveler<30Days: No (Clementine Robledo MD R2) History of Present Illness HPI Patient is a 32 year old at 35 and 5/7 weeks gestation by first trimester ultrasound, [place] 10/21/2017, who presents as a direct admission for blood sugar management. She states she was diagnosed with diabetes 2 days ago with concern that she has chronic diabetes as opposed to just gestational diabetes. One hour GTT was 248. She was given prescription for glyburide 5 mg daily this morning but has not started. She denies leakage of fluid, vaginal bleeding, and contractions. She feels baby moving regularly. She denies RAMOS/N/V/D/fever/sick contacts/SOB/calf pain/dizziness/seeing spots. OB care is with [facility] last office visit was today. She states she has had an uncomplicated up to this point but is GBS +. (Clementine Robledo MD R2) History Past Medical History Narrative Medical Fibromyalgia - 2013 Beta thalassemia minor Cholelithiasis Prediabetes - 2014 Asthma Anxiety (Clementine Robledo MD R2) Obstetric History Obstetric History HPV positive, LG ROC GBS positive (Clementine Robledo MD R2) Past Surgical History Narrative Surgical None (Clementine Robledo MD R2) Family History Narrative Family History Father with severe type 2 diabetes poorly controlled (Clementine Robledo MD R2) Social History Narrative Social History Tobacco: Quit February 2017 when she manages Denies alcohol and illicit drug use Alcohol Use: No Tobacco Use: No (quit February 2017) Substance Abuse: No (Clementine Robledo MD R2) Allergies-Medications (Allergen,Severity, Reaction): Coded Allergies: cat dander (Verified Allergy, Mild, Itching, sneezing, 09/21/17) Home Meds Active Scripts Lancets 33G Harvey (Lancets 33G Harvey) 33 Gauge Mis, BOX .ROUTE DIRECTED for Blood Sugar Management, #1 1 Refill Check fasting and 2-hr post prandial glucose levels a total of 4 times a day Prov:Eko,Stephanie Rosenthal MD R2 09/22/17 Onetouch Ultra Test Strips (Onetouch Ultra Test Strips) 1 Marti Marti, BOX .ROUTE DIRECTED for Blood Sugar Management, #1 1 Refill Check fasting and 2-hr post prandial glucose levels a total of 4 times a day Prov:Stephanie Burnett MD R2 09/22/17 Glyburide (Glyburide) 2.5 Mg Tab, 2.5 MG PO HS for Blood Sugar Management, #30 TAB 0 Refills Take with meals at the same time each day Prov:Stephanie Burnett MD R2 09/22/17 Venlafaxine ER 24 HR (Effexor XR 24 HR) 75 Mg Cap, 75 MG PO DAILY, #30 CAP 3 Refills Prov:Rafa Garcia MD 06/03/17 W/O Vit A W/ Fe Fumar (Citranatal [place]) 27-1-260 Mg Cap, 1 CAP PO DAILY for Nutritional Supplement, #90 CAP 0 Refills Prov:Rafa Garcia MD 03/11/17 Reported Medications Albuterol 18 GM Inh (Ventolin Hfa 18 GM Inh) 90 Mcg/Act Aer, 2 PUFF INH Q4H Y for SHORTNESS OF BREATH, #1 INHALER 0 Refills 11/04/16 Albuterol Neb (Albuterol Neb) 2.5 Mg/3 Ml Neb, 2.5 MG NEB Q4HR NEB Y for SHORTNESS OF BREATH, #60 NEBULE 0 Refills 11/04/16 Narrative Medication Effexor 75 mg daily, 150 mg daily before she left and she is Ativan 0.5 mg when necessary - last dose reportedly 2 weeks ago. She was previously prescribed this for anxiety vitamins (Clementine Robledo MD R2) Review of Systems Except as stated in HPI: all other systems reviewed are Neg (Clementine Robledo MD R2) Physical Exam Narrative GENERAL: Well-nourished, well-developed female. Obese. SKIN: Warm and dry. No rashes or ecchymoses. HEAD: Normocephalic and atraumatic. EYES: No scleral icterus. No injection or drainage. ENT: No nasal drainage noted. Mucous membranes pink. Airway patent. NECK: Supple, trachea midline. No JVD. CARDIOVASCULAR: Regular rate and rhythm without murmurs, gallops, or rubs. RESPIRATORY: Breath sounds equal bilaterally. No accessory muscle use. ABDOMEN/GI: Abdomen soft, non-tender, bowel sounds present, no rebound, no guarding Gravid to >35 weeks size GENITOURINARY: deferred Uterine Contractions: Absent FHT's: Category: 1 Baseline: 130 Reactive: 150 Variability: Moderate Decels: Absent EXTREMITIES: No cyanosis or edema. BACK: Nontender without obvious deformity. No CVA tenderness. NEUROLOGICAL: Awake and alert. Motor and sensory grossly within normal limits. Five out of 5 muscle strength in all muscle groups. Normal speech. (Clementine Robledo MD R2) Caprini VTE Risk Assessment Caprini VTE Risk Assessment: Mod/High Risk (score >= 2) Caprini Risk Assessment Model Point Value = 1 Point Value = 2 Point Value = 3 Point Value = 5 Age 41-60 Minor surgery BMI > 25 kg/m2 Swollen legs Varicose veins or History of unexplained or recurrent spontaneous Oral contraceptives or hormone replacement Sepsis (< 1 month) Serious lung disease, including pneumonia (< 1 month) Abnormal pulmonary function Acute myocardial infarction Congestive heart failure (< 1 month) History of inflammatory bowel disease Medical patient at bed rest Age 61-74 Arthroscopic surgery Major open surgery (> 45 min) Laparoscopic surgery (> 45 min) Malignancy Confined to bed (> 72 hours) Immobilizing plaster cast Central venous access Age >= 75 History of VTE Family history of VTE Factor V Leiden Prothrombin [id number] Lupus anticoagulant Anticardiolipin antibodies Elevated serum homocysteine Heparin-induced thrombocytopenia Other congenital or acquired thrombophilia Stroke (< 1 month) Elective arthroplasty Hip, pelvis, or leg fracture Acute spinal cord injury (< 1 month) Prophylaxis Regimen Total Risk Factor Score Risk Level Prophylaxis Regimen 0-1 Low Early ambulation 2 Moderate Order ONE of the following: *Sequential Compression Device (SCD) *Heparin 5000 units SQ BID 3-4 Higher Order ONE of the following medications: *Heparin 5000 units SQ TID *Enoxaparin/Lovenox 40 mg SQ daily (WT < 150 kg, CrCl > 30 mL/min) *Enoxaparin/Lovenox 30 mg SQ daily (WT < 150 kg, CrCl > 10-29 mL/min) *Enoxaparin/Lovenox 30 mg SQ BID (WT < 150 kg, CrCl > 30 mL/min) AND/OR *Sequential Compression Device (SCD) 5 or more Highest Order ONE of the following medications: *Heparin 5000 units SQ TID (Preferred with Epidurals) *Enoxaparin/Lovenox 40 mg SQ daily (WT < 150 kg, CrCl > 30 mL/min) *Enoxaparin/Lovenox 30 mg SQ daily (WT < 150 kg, CrCl > 10-29 mL/min) *Enoxaparin/Lovenox 30 mg SQ BID (WT < 150 kg, CrCl > 30 mL/min) AND *Sequential Compression Device (SCD) (Clemetnine Robledo MD R2) Data Data Vital Signs Reviewed: Yes (BP 131/72, pulse 87) Orders Orders Place In Observation (09/21/17 ) Code Status (09/21/17 18:24) Vital Signs (Adult) AJIT.QSHIFT (09/21/17 18:24) Activity Oob Ad Lisa (09/21/17 18:24) Heart (09/21/17 18:24) Diet Ob Consistent Carb (09/21/17 Dinner) Hemoglobin (Hgb) A1c (09/21/17 18:24) Urinalysis - C+S If Indicated (09/21/17 18:24) Comprehensive Metabolic Panel (09/21/17 18:24) Us Ob Repeat/Fu(Growth) (09/21/17 ) Consult Perinatology (09/21/17 ) Dietary (Dietitian) Consult (09/21/17 ) Consult Electronic Court Recorder (09/21/17 ) Bedside Glucose AJIT.CSUGAR (09/21/17 18:24) Low Novolog Scale (09/22/17 08:00) Bedside Glucose Q15M (09/21/17 18:24) Hypoglycemia 70 Mg/Dl Or < (09/21/17 18:24) Dextrose 50% In [place] (Vial) Inj (D50w (Vi (09/21/17 18:30) Glucagon Inj (Glucagon Inj) (09/21/17 18:30) Glucose, Random (09/21/17 18:24) Specimen To Be Collected PRN (09/21/17 18:24) (Clementine Robledo MD R2) Assessment/Plan Problem List: (1) with 35 completed weeks gestation ICD Codes: Z3A.35 - 35 weeks gestation of Status: Acute (2) Gestational diabetes mellitus (GDM) affecting first ICD Codes: O24.419 - Gestational diabetes mellitus in , unspecified control Status: Acute (3) Asthma ICD Codes: J45.909 - Unspecified asthma, uncomplicated Status: Chronic (4) Beta thalassemia minor ICD Codes: D56.3 - Thalassemia minor Status: Chronic (5) Anxiety ICD Codes: F41.9 - Anxiety disorder, unspecified Status: Chronic (6) Cholelithiasis ICD Codes: K80.20 - Calculus of gallbladder without cholecystitis without obstruction Status: Chronic Assessment and Plan Patient is a 32 year old at 35 and 5/7 weeks gestation by first trimester ultrasound, [place] 10/21/2017, who presents as a direct admission for blood sugar management. Intrauterine Category 1 tracing Patient desires vaginal delivery IV fluid bolus 1 (NS) given some irritability on monitor Monitor heart tones Routine care Gestational diabetes One hour glucose tolerance test 248 Patient is asymptomatic Order CBC, CMP, A1c, UA Fasting, two-hour postprandial blood sugar checks Low-dose NovoLog supplemental insulin as needed May require long-acting or supplemental insulin at home, will monitor insulin needs while in hospital Ultrasound for growth tomorrow Dietitian consult Perinatology consult tomorrow Asthma Mild intermittent Albuterol PRN q4-6hr nebs SOB, wheezing Thalassemia minor CBC pending Anemia on labs, 10.2 hgb outpt Rh+ Anxiety Will monitor symptoms GBS positive Start IV penicillin per protocol when in labor DW Dr. Nury Lazar (Clementine Robledo MD R2) Attending Attestation The patient was personally seen and examined by me and I performed all mittal portions of the decision making. (Nury Lazar MD) Clementine Robledo MD R2 Sep 21, 2017 18:31 Nury Lazar MD Sep 24, 2017 11:43
[2017-09-21 19:17] VITALS: BP 135/77; PULSE 87
[2017-09-21] MEDS ORDERED: SODIUM CHLOR 0.9% 1000 ML INJ 1,000 ML IV ONE (19:30)
[2017-09-21 19:37] VITALS: RESP 18; TEMP 98.8
[2017-09-21] MEDS ORDERED: RESP: ALBUTEROL 2.5 MG/3 ML NEB (PRN) NEB (19:45)
[2017-09-21 20:11] LABS: BACTERIA, URINE MANY /hpf; BLOOD, URINE NEG (NEG); COMMENT (UR) CULTURE INDICATED; CULTURE IF INDICATED CULTURE INDICATED; GLUCOSE,URINE NEG (NEG); KETONE, URINE TRACE mg/dL (NEG); MUCUS URINE FEW /lpf (OCC); NITRITE,URINE NEG (NEG); SQUAMOUS EPITHELIAL CELL URINE 18 /hpf (0-5); URINE COLOR YELLOW (YELLW/STRAW)
[2017-09-21 20:19] LABS: AUTOMATED NEUTROPHIL # 5.9 TH/MM3 (1.8-7.7); BASOPHIL % 0.1 % (0.0-2.0); EOSINOPHIL # 0.1 TH/MM3 (0-0.4); EOSINOPHIL % 1.5 % (0.0-4.0); HEMATOCRIT 32.8 % (35.0-46.0); HEMO FLAGS DIFF FINAL; LYMPH % 19.7 % (9.0-44.0); LYMPHOCYTE # 1.6 TH/MM3 (1.0-4.8); MEAN CORPUSCULAR HEMOGLOBIN 21.4 PG (27.0-34.0); MEAN CORPUSCULAR HGB CONC 31.5 % (32.0-36.0); MONO % 7.8 % (0.0-8.0); NEUT % 70.9 % (16.0-70.0); PLATELET COUNT 236 TH/MM3 (150-450); RED BLOOD COUNT 4.82 MIL/MM3 (4.00-5.30); RED CELL DISTRIBUTION WIDTH 16.1 % (11.6-17.2); WHITE BLOOD COUNT 8.3 TH/MM3 (4.0-11.0)
[2017-09-21 20:26] LABS: ANION GAP 13 MEQ/L (5-15); AST (GOT) 17 U/L (15-37); BICARBONATE 19.3 MEQ/L (21.0-32.0); BLOOD UREA NITROGEN 13 MG/DL (7-18); CHLORIDE 107 MEQ/L (98-107); GLOMERULAR FILTRATION RATE 156 ML/MIN (>89); POTASSIUM 3.9 MEQ/L (3.5-5.1); SODIUM (NA) 139 MEQ/L (136-145)
[2017-09-21 20:27] LABS: ALT (GPT) 23 U/L (10-53)
[2017-09-21 20:29] LABS: ALKALINE PHOSPHATASE 158 U/L (45-117); TOTAL BILIRUBIN ADULT 0.2 MG/DL (0.2-1.0)
[2017-09-21] MEDS ORDERED: INSULIN ASPART 1,000 UNITS/10 ML VIAL SQ ONE (22:30)
[2017-09-21] MEDS ORDERED: VENLAFAXINE HCL XR 75 MG CAP PO SCH (22:45)
[2017-09-22] VITALS: RESP 18
[2017-09-22 03:00] VITALS: RESP 18
[2017-09-22 05:58] VITALS: RESP 18
--- NOTE | 2017-09-22 07:34 | HHI.PR ---
Subjective Remarks Late entry NST report for 09/21/172044 Indications: IUP at 35 weeks, probable class B diabetic, obesity, anxiety, Fibromyalgia - 2013, Beta thalassemia minor, Cholelithiasis, Prediabetes - 2014 , Asthma A NST was performed heart rate baseline in the 130s to 140s with moderate long-term variability, good accelerations, no decelerations noted. This is a category 1 tracing and a reactive NST and reflex reassuring testing with good oxygenation Follow-up: A repeat NST was performed on 09/22/17 Final diagnosis: IUP at 35 weeks, probable class B diabetic, obesity, anxiety, Fibromyalgia - 2013, Beta thalassemia minor, Cholelithiasis, Prediabetes - 2014 , Asthma Objective Vital Signs Date Time Temp Pulse Resp B/P (MAP) Pulse Ox O2 Delivery O2 Flow Rate FiO2 09/22/17 05:58 18 09/22/17 03:00 18 09/22/17 00:00 18 09/21/17 19:37 18 09/21/17 19:37 98.8 09/21/17 19:17 87 135/77 (96) Result Diagram: 09/21/17191909/21/171919 Nury Lazar MD Sep 22, 2017 07:34
[2017-09-22] MEDS: INSULIN ASPART SUPPLEMENTAL SCALE SQ SCH ×2 (08:00→12:00)
[2017-09-22 08:01] VITALS: RESP 18; TEMP 98.2
[2017-09-22 08:03] VITALS: BP 133/76; PULSE 85
[2017-09-22] MEDS ORDERED: PRENATAL VITAMIN CHEWABLE TAB PO SCH (09:00)
[2017-09-22] MEDS ORDERED: VENLAFAXINE HCL XR 75 MG CAP PO SCH (09:00)
--- NOTE | 2017-09-22 09:50 | HHI.PR ---
Subjective Remarks Indications: IUP at 35 weeks, probable class B diabetic, obesity, anxiety, Fibromyalgia - 2013, Beta thalassemia minor, Cholelithiasis, Prediabetes - 2014 , Asthma A NST was performed heart rate baseline in the 130s to 140s with moderate long-term variability, good accelerations, no decelerations noted. This is a category 1 tracing and a reactive NST and reflex reassuring testing with good oxygenation Follow-up: as clinically indicated Final diagnosis: IUP at 35 weeks, probable class B diabetic, obesity, anxiety, Fibromyalgia - 2013, Beta thalassemia minor, Cholelithiasis, Prediabetes - 2014 , Asthma Objective Vital Signs Date Time Temp Pulse Resp B/P (MAP) Pulse Ox O2 Delivery O2 Flow Rate FiO2 09/22/17 08:03 85 133/76 (95) 09/22/17 08:01 98.2 18 09/22/17 05:58 18 09/22/17 03:00 18 09/22/17 00:00 18 09/21/17 19:37 18 09/21/17 19:37 98.8 09/21/17 19:17 87 135/77 (96) Result Diagram: 09/21/17191909/21/171919 Nury Lazar MD Sep 22, 2017 09:50
[2017-09-22] MEDS ORDERED: INFLUENZA VIRUS VACCINE (QUADRIVALENT) 0.5 ML SYR IM ONE (10:00)
--- NOTE | 2017-09-22 10:06 | PD.OB.ANTE ---
Subjective Diagnosis: (1) with 35 completed weeks gestation Diagnosis: Principal (2) Gestational diabetes mellitus (GDM) affecting first Diagnosis: Principal (3) Asthma Diagnosis: Secondary (4) Beta thalassemia minor Diagnosis: Secondary (5) Anxiety Diagnosis: Secondary (6) Cholelithiasis Diagnosis: Secondary Interval History Patient is doing well this morning and has no acute concerns. She denies shortness of breath, vaginal bleeding, contractions, and endorses positive movement. (Eko,Stephanie U R2) Objective Vital Signs Vital Signs Date Time Temp Pulse Resp B/P (MAP) Pulse Ox O2 Delivery O2 Flow Rate FiO2 09/22/17 08:03 85 133/76 (95) 09/22/17 08:01 98.2 18 09/22/17 05:58 18 09/22/17 03:00 18 09/22/17 00:00 18 09/21/17 19:37 18 09/21/17 19:37 98.8 09/21/17 19:17 87 135/77 (96) Lab & Micro Results Test 09/21/17 19:20 White Blood Count 8.3 TH/MM3 Red Blood Count 4.82 MIL/MM3 Hemoglobin 10.3 GM/DL Hematocrit 32.8 % Mean Corpuscular Volume 68.0 FL Mean Corpuscular Hemoglobin 21.4 PG Mean Corpuscular Hemoglobin Concent 31.5 % Red Cell Distribution Width 16.1 % Platelet Count 236 TH/MM3 Mean Platelet Volume 9.7 FL Neutrophils (%) (Auto) 70.9 % Lymphocytes (%) (Auto) 19.7 % Monocytes (%) (Auto) 7.8 % Eosinophils (%) (Auto) 1.5 % Basophils (%) (Auto) 0.1 % Neutrophils # (Auto) 5.9 TH/MM3 Lymphocytes # (Auto) 1.6 TH/MM3 Monocytes # (Auto) 0.6 TH/MM3 Eosinophils # (Auto) 0.1 TH/MM3 Basophils # (Auto) 0.0 TH/MM3 CBC Comment DIFF FINAL Differential Comment Urine Color YELLOW Urine Turbidity HAZY Urine pH 6.0 Urine Specific Sesser 1.026 Urine Protein TRACE mg/dL Urine Glucose (UA) NEG mg/dL Urine Ketones TRACE mg/dL Urine Occult Blood NEG Urine Nitrite NEG Urine Bilirubin NEG Urine Urobilinogen LESS THAN 2.0 MG/DL Urine Leukocyte Esterase MOD Urine RBC 1 /hpf Urine WBC 5 /hpf Urine Squamous Epithelial Cells 18 /hpf Urine Bacteria MANY /hpf Urine Mucus FEW /lpf Microscopic Urinalysis Comment CULTURE INDICATED Blood Urea Nitrogen 13 MG/DL Creatinine 0.55 MG/DL Random Glucose 74 MG/DL Total Protein 6.8 GM/DL Albumin 2.7 GM/DL Calcium Level 9.3 MG/DL Alkaline Phosphatase 158 U/L Aspartate Amino Transf (AST/SGOT) 17 U/L Alanine Aminotransferase (ALT/SGPT) 23 U/L Total Bilirubin 0.2 MG/DL Sodium Level 139 MEQ/L Potassium Level 3.9 MEQ/L Chloride Level 107 MEQ/L Carbon Dioxide Level 19.3 MEQ/L Anion Gap 13 MEQ/L Estimat Glomerular Filtration Rate 156 ML/MIN Date/Time Source Procedure Growth Status 09/21/17 19:20 Urine Clean Catch Urine Culture Pending Received Physical Exam GENERAL: Well-nourished, well-developed patient. CARDIOVASCULAR: Regular rate and rhythm without murmurs, gallops, or rubs. RESPIRATORY: Breath sounds equal bilaterally. No accessory muscle use. ABDOMEN/GI: Abdomen soft, non-tender. Fundus: Gravid EXTREMITIES: No cyanosis or edema, non-tender, without signs of DVT. (Eko,Stephanie Rosenthal MD R2) Assessment and Plan Problem List: (1) with 35 completed weeks gestation ICD Codes: Z3A.35 - 35 weeks gestation of Status: Acute (2) Gestational diabetes mellitus (GDM) affecting first ICD Codes: O24.419 - Gestational diabetes mellitus in , unspecified control Status: Acute (3) Asthma ICD Codes: J45.909 - Unspecified asthma, uncomplicated Status: Chronic (4) Beta thalassemia minor ICD Codes: D56.3 - Thalassemia minor Status: Chronic (5) Anxiety ICD Codes: F41.9 - Anxiety disorder, unspecified Status: Chronic (6) Cholelithiasis ICD Codes: K80.20 - Calculus of gallbladder without cholecystitis without obstruction Status: Chronic Assessment and Plan Patient is a 32 year old at 35 and 6/7 weeks gestation by first trimester ultrasound, [place] 10/21/2017, who presented as a direct admission for blood sugar management. She is GBS positive. Intrauterine Normal NST this a.m. Patient desires vaginal delivery Continue routine antepartum care Gestational diabetes One hour glucose tolerance test 248 Received 2 units of sliding scale insulin due to post-prandial bedside glucose of 150 at 22:33 on 09/21/17 Fasting glucose 103 this am - no supplemental insulin required Hemoglobin A1c pending, normal electrolytes Continue fasting, two-hour postprandial blood sugar checks Continue low-dose NovoLog supplemental insulin as needed, monitoring insulin needs while in hospital Ultrasound for growth today Dietitian consult Perinatology consult Asthma Mild intermittent Albuterol PRN q4-6hr nebs SOB, wheezing Thalassemia minor CBC shows anemia with hemoglobin/hematocrit 10.3/32.8, MCV of 68 Recommend outpatient management Anxiety Continue to monitor symptoms Plan to discharge home today after ultrasound, consultation with MFM and dietitian Seen and examined with Dr. Nury Lazar (Stephanie Burnett MD R2) Assessment and Plan The patient was personally seen and examined by me and I performed all mittal portions of the decision making. Patient to have Ob ultrasound today and MFM consultation. Will defer diabetes management to MFM and defer discharge/dispo decision until after MFM consultation. (Nury Lazar MD) Stephanie Burnett MD R2 Sep 22, 2017 10:06 Nury Lazar MD Sep 24, 2017 11:48
[2017-09-22 13:17] LABS: HEMOGLOBIN A1a 1.2 %; HEMOGLOBIN A1b 2.1 %; HEMOGLOBIN Ao 82.8 %; HEMOGLOBIN LA1C 1.6 %; HEMOGLOBIN P3 3.7 %
[2017-09-22] MEDS ORDERED: GLYB2.5T3 PO (14:12)
--- NOTE | 2017-09-22 14:13 | HHI.DCPOC ---
Discharge Care Plan Diagnosis: (1) with 35 completed weeks gestation (2) Gestational diabetes mellitus (GDM) affecting first (3) Beta thalassemia minor (4) Asthma Report Symptoms to Your Doctor -Temperature above 100.5 degrees -Redness, of incision or excessive or foul smelling drainage -Unusual pain or calf pain -Increased vaginal bleeding -Painful or difficulty urinating -Feelings of extreme sadness or anxiety after 2 weeks Goals to Promote Your Health * To prevent worsening of your condition and complications * To maintain your health at the optimal level Directions to Meet Your Goals Take your medications as prescribed Follow your dietary instruction Follow activity as directed Ensure plenty of rest for recovery Drink fluids for hydration Keep your appointments as scheduled Take your immunizations and boosters as scheduled If your symptoms worsen call your PCP, if no PCP go to Urgent Care Center or Emergency Room Smoking is Dangerous to Your Health. Avoid second hand smoke Call the 24-hour crisis hotline for domestic abuse at Stephanie Burnett MD R2 Sep 22, 2017 14:13
--- NOTE | 2017-09-22 14:30 | MB ---
cc: JET MIRANDA MD, RAMON A. M.D. DATE OF CONSULTATION: 09/22/2017 HISTORY OF PRESENT ILLNESS This is a 32-year-old black female, 1, para 0, at 35 and 6/7 weeks gestation by early ultrasound. The patient had a recent glucose tolerance test that was grossly abnormal and was admitted for metabolic control. The patient states that she has had an uncomplicated up to this point. Denies any decreased movements, vaginal bleeding, leakage of water, or any other symptoms. PAST MEDICAL HISTORY 1. Diagnosis of fibromyalgia in 2013. 2. Beta thalassemia minor. 3. Gallbladder stones. 4. The patient states that in 2014 she was told she was a prediabetic. OBSTETRICAL HISTORY The patient is primigravida. 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 PAST SURGICAL HISTORY No surgeries. TRANSFUSIONS No blood transfusions. SOCIAL HISTORY No history of alcohol or drug abuse. States she quit smoking when she found out she was . FAMILY HISTORY Significant for diabetes. REVIEW OF SYSTEMS The review of systems on a 10-point evaluation is completely negative. PHYSICAL EXAMINATION VITAL SIGNS: Blood pressure 130/70, heart rate 82, respiratory rate 18, afebrile. GENERAL: A well-nourished and well-developed female, alert and oriented x 3, in no acute distress. HEENT: Normocephalic. PERRLA. Extraocular movements intact. NECK: Supple. No thyromegaly. LUNGS: Clear to auscultation. HEART: Normal sinus rhythm. No murmurs or gallops. ABDOMEN: Gravid, nontender. heart tones I tracing, no regular contractions noted. PELVIC: Deferred. EXTREMITIES: No edema. Deep tendon reflexes within normal limits. IMAGING Ultrasound examination performed today shows a single living fetus with measurements consistent with dates. However, there is evidence of macrosomia with an estimated weight of 7 poungs, greater than 97th percentile. lung volume is also increased with an CAMILO of 30.7. No structural abnormalities were noted, however, exam is somewhat limited as the patient is morbidly obese with an BMI of 43. There is, however, evidence of increased subcutaneous fat consistent with a baby of a diabetic mother. Biophysical score was 10/10. LABORATORY Laboratory data shows hemoglobin of 10.3 with a normal AST and ALT. Previous hemoglobin A1c was 7.7, at this time it is pending. IMPRESSION 1. Intrauterine at 30 and 4/7 weeks. 2. Gestational diabetes under poor control, admitted for evaluation of metabolic control. RECOMMENDATIONS 1. Dietary counseling as prescribed. 2. Diabetic education. 3. Glyburide 2.5 mg q.h.s. 4. Twice a week testing in the form of biophysical and NST. This patient is at very significant risk for intrauterine and therefore close management should be undertaken based on the current sugars available which include a fasting of 103 and normal postprandial this morning, I believe she would benefit from glyburide 2.5, however, close follow up with fasting and two-hour postprandial blood sugar should be undertaken. As soon as the patient is discharged, please schedule for followup in the testing unit for testing as per protocol. MD MARIBELL Naranjo/HANNY /1:14 PM /1:42 PM
[2017-09-22] MEDS ORDERED: LANC1MIS62 (15:01)
[2017-09-22] MEDS ORDERED: ONETTES4 (15:01)
--- NOTE | 2017-09-22 16:08 | HHI.PR ---
Subjective . Patient is doing well. Met with MFM and trim crew supervisor and agrees with all plans. She states that she would keep to the diabetic diet as instructed because she does not want to be placed on insulin. Assessment/Plan . Plan to discharge home today with Glyburide 2.5mg PO HS Will treat asymptomatic UTI with Monuril 3gm powder Pt sent home with test strips and lancets Follow up with OB provider and make sure to attend testing appointments as scheduled. Call trim crew supervisor for questions about nutrition Eko,Stephanie Rosenthal MD R2 Sep 22, 2017 16:08
[2017-09-28] MEDS ORDERED: AMOX500T PO (10:23)
== END 2017-09-22 16:21 | disposition home or self-care (01) ==
LOC: H2EA 17:15
PROVIDERS: ADMIT Obstetrics & Gynecology; ATTEND Obstetrics & Gynecology
DX: O24.419 Gestational diabetes mellitus in pregnancy, unspecified control (principal); O23.43 Unspecified infection of urinary tract in pregnancy, third trimester; O99.513 Diseases of the respiratory system complicating pregnancy, third trimester; J45.909 Unspecified asthma, uncomplicated; D56.3 Thalassemia minor; O99.343 Other mental disorders complicating pregnancy, third trimester; F41.9 Anxiety disorder, unspecified; O26.613 Liver and biliary tract disorders in pregnancy, third trimester; K80.20 Calculus of gallbladder without cholecystitis without obstruction; M79.7 Fibromyalgia; O99.820 Streptococcus B carrier state complicating pregnancy; O99.213 Obesity complicating pregnancy, third trimester; Z3A.35 35 weeks gestation of pregnancy; Z87.891 Personal history of nicotine dependence; Z23 Encounter for immunization
CPT/HCPCS: 76816; 76819; 80053; 81001; 82948; 83036; 85025; 87086; 90686; 96372; G0378; J1815; Q2038

== ENCOUNTER → 2017-09-23 | Outpatient (CLI) | payer MEDICAID ==
[~2017-09-23] MED LIST changes: +AMOX500T PO; +GLYB2.5T3 PO; -GLYB5TAB3 PO; +LANC1MIS62; +ONETTES4
== END ==
LOC: CDED 14:26
PROVIDERS: ATTEND Obstetrics & Gynecology
DX: O24.419 Gestational diabetes mellitus in pregnancy, unspecified control (principal)
CPT/HCPCS: 97802

== ENCOUNTER 2017-10-17 06:38 | Inpatient (IN) | payer MEDICAID ==
[2017-10-17] VITALS (84 sets, daily range): BP systolic 118–166; BP diastolic 61–131; PULSE 67–130; RESP 16–20; TEMP 97.7–98.2
[2017-10-17] MEDS ORDERED: LACTATED RINGER'S 1000 ML INJ 1,000 ML IV SCH (07:25)
[2017-10-17] MEDS ORDERED: LACTATED RINGER'S 1000 ML INJ 1,000 ML IV PRN (07:25)
--- NOTE | 2017-10-17 07:25 | PD ---
HPI Chief Complaint 39 weeks and 3 days Uterine contractions 1 day Date Seen: Oct 17, 2017 Time Seen: 07:00 Travel History International Travel<30 Days: No Contact w/Intl Traveler<30Days: No Known Affected Area: No History of Present Illness HPI Pt is a 32 yo at 39 weeks and 3 days. EDC 10-21-2017. care with [facility] Pt presents with uterine contractions since last night, stronger past 2 hours. Pt reports active movements. No vaginal bleeding or leaking. This is complicated by gestational diabetes. Per patient, well controlled on Glyburide. Pt has had elevated BP in office last week. She returned 24 hour urine protein collection 10/15/2017. Initial BP today is 150s/90s Pt denies headaches, vision changes or RUQ pain. Pt takes Effexor for anxiety. Weeks Gestation: 39 Para: 0 : 1 History Past Medical History Narrative Medical depression/anxiety Obstetric History Obstetric History Primigravida. complicated by gestational diabetes. Well controlled on Glyburide. Past Surgical History Surgical History: No Previous Surgery Family History Family History: father has Diabetes Social History Alcohol Use: No Tobacco Use: No Substance Abuse: No Allergies-Medications (Allergen,Severity, Reaction): Coded Allergies: cat dander (Verified Allergy, Mild, Itching, sneezing, 10/06/17) Home Meds Active Scripts Amoxicillin (Amoxicillin) 500 Mg Tab, 500 MG PO TID for Infection, #21 TAB 0 Refills Prov:Nury Araujo 09/28/17 Lancets 33G [place] (Lancets 33G [place]) 33 Gauge Mis, BOX .ROUTE DIRECTED for Blood Sugar Management, #1 1 Refill Check fasting and 2-hr post prandial glucose levels a total of 4 times a day Prov:Stephanie Burnett MD R2 09/22/17 Onetouch Ultra Test Strips (Onetouch Ultra Test Strips) 1 Marti Marti, BOX .ROUTE DIRECTED for Blood Sugar Management, #1 1 Refill Check fasting and 2-hr post prandial glucose levels a total of 4 times a day Prov:Stephanie Burnett MD R2 09/22/17 Glyburide (Glyburide) 2.5 Mg Tab, 2.5 MG PO HS for Blood Sugar Management, #30 TAB 0 Refills Take with meals at the same time each day Prov:Stephanie Burnett MD R2 09/22/17 Venlafaxine ER 24 HR (Effexor XR 24 HR) 75 Mg Cap, 75 MG PO DAILY, #30 CAP 3 Refills Prov:Rafa Garcia MD 06/03/17 W/O Vit A W/ Fe Fumar (Citranatal [place]) 27-1-260 Mg Cap, 1 CAP PO DAILY for Nutritional Supplement, #90 CAP 0 Refills Prov:Rafa Garcia MD 03/11/17 Reported Medications Albuterol 18 GM Inh (Ventolin Hfa 18 GM Inh) 90 Mcg/Act Aer, 2 PUFF INH Q4H Y for SHORTNESS OF BREATH, #1 INHALER 0 Refills 11/04/16 Albuterol Neb (Albuterol Neb) 2.5 Mg/3 Ml Neb, 2.5 MG NEB Q4HR NEB Y for SHORTNESS OF BREATH, #60 NEBULE 0 Refills 11/04/16 Review of Systems Except as stated in HPI: all other systems reviewed are Neg Physical Exam Narrative GENERAL: Well-nourished, well-developed patient. SKIN: Warm and dry. HEAD: Normocephalic and atraumatic. EYES: No scleral icterus. No injection or drainage. ENT: No nasal drainage noted. Mucous membranes pink. Airway patent. NECK: Supple, trachea midline. No JVD. CARDIOVASCULAR: Regular rate and rhythm without murmurs, gallops, or rubs. RESPIRATORY: Breath sounds equal bilaterally. No accessory muscle use. BREASTS: Bilateral exam showed no masses , no retractions, no nipple discharge. ABDOMEN/GI: Abdomen soft, non-tender, bowel sounds present, no rebound, no guarding Gravid to [40] weeks size Fundal Height: [-] GENITOURINARY: External Genitalia: intact and normal in appearance BUS glands: [wnl] Cervix: [soft] Dilatation: [3cm] Effacement: [80%] Station: [-3] Presentation: [vertex] Membranes: [intact] Uterine Contractions: [2-4 minutes] FHT's: Category: [1] Baseline: [130s] Reactive: [-] Variability: [moderate] Decels: [none] EXTREMITIES: No cyanosis or edema. BACK: Nontender without obvious deformity. No CVA tenderness. NEUROLOGICAL: Awake and alert. Motor and sensory grossly within normal limits. Five out of 5 muscle strength in all muscle groups. Normal speech. NORMAL patella DTRs Data Data Vital Signs Reviewed: Yes Group B Strep: Positive MDM Medical Record Reviewed: Yes Plan 32 yo at 39 weeks and 3 days. GBS positive. Gestational diabetes controlled on Glyburide. Elevated BPs, without any symptoms. Will check PIH labs. Diagnosis Diagnosis: Primary Impression: with 39 completed weeks gestation Additional Impressions: Admitted to labor and delivery Gestational diabetes mellitus (GDM) affecting first PIH ( induced hypertension), antepartum Sharif Nicholas MD Oct 17, 2017 07:25
[2017-10-17] MEDS ORDERED: DEXTROSE 50% IN WATER 50 ML VIAL(D50) IV PUSH PRN (07:30)
[2017-10-17] MEDS ORDERED: SODIUM CHLORID 0.9% 500 ML INJ 500 ML IV PRN (07:30)
[2017-10-17] MEDS ORDERED: LIDOCAINE HCL 1% 50 ML VIAL I-DERMAL PRN (07:30)
[2017-10-17] MEDS ORDERED: GLUCAGON 1 MG/ML VIAL IM PRN (07:30)
[2017-10-17] MEDS ORDERED: CITRIC ACID-SODIUM CITRATE LIQ 30 ML UDC PO SCH (07:30)
[2017-10-17] MEDS ORDERED: LIDOCAINE HCL 1% 50 ML VIAL INFIL PRN (07:30)
[2017-10-17] MEDS ORDERED: OXYTOCIN 30 UNITS-500ML PREMIX 500 ML IV ONE (07:30)
[2017-10-17] MEDS ORDERED: MINERAL OIL 10 ML VIAL TOPICAL PRN (07:30)
[2017-10-17] MEDS ORDERED: SODIUM CHLOR 0.9% 1000 ML INJ 1,000 ML IV PRN (07:45)
[2017-10-17 07:48] LABS: BASOPHIL # 0.1 TH/MM3 (0-0.2); BASOPHIL % 0.6 % (0.0-2.0); EOSINOPHIL # 0.1 TH/MM3 (0-0.4); HEMATOCRIT 33.7 % (35.0-46.0); HEMOGLOBIN 10.7 GM/DL (11.6-15.3); LYMPH % 17.1 % (9.0-44.0); LYMPHOCYTE # 1.6 TH/MM3 (1.0-4.8); MEAN CELL VOLUME 67.5 FL (80.0-100.0); MEAN CORPUSCULAR HEMOGLOBIN 21.5 PG (27.0-34.0); MEAN CORPUSCULAR HGB CONC 31.8 % (32.0-36.0); MONO % 6.6 % (0.0-8.0); MONOCYTE # 0.6 TH/MM3 (0-0.9); NEUT % 74.7 % (16.0-70.0); PLATELET COUNT 192 TH/MM3 (150-450); RED BLOOD COUNT 4.99 MIL/MM3 (4.00-5.30); RED CELL DISTRIBUTION WIDTH 17.3 % (11.6-17.2); WHITE BLOOD COUNT 9.4 TH/MM3 (4.0-11.0)
--- NOTE | 2017-10-17 07:49 | HHI.HP ---
HPI Chief Complaint 39 WEEKS AND 3 DAYS PRESENTS IN LABOR Travel History International Travel<30 Days: No Contact w/Intl Traveler<30Days: No Known Affected Area: No History of Present Illness HPI Pt is a 32 yo at 39 weeks and 3 days. EDC 10-21-2017. care with [facility] Pt presents with uterine contractions since last night, stronger past 2 hours. Pt reports active movements. No vaginal bleeding or leaking. This is complicated by gestational diabetes. Per patient, well controlled on Glyburide. Pt has had elevated BP in office last week. She returned 24 hour urine protein collection 10/15/2017. Initial BP today is 150s/90s Pt denies headaches, vision changes or RUQ pain. Pt takes Effexor for anxiety. Cervix is 3cm dilated/80% effaced. Was 1cm in office last week Weeks Gestation: 39 Para: 0 : 1 History Past Medical History Narrative Medical Depression/Anxiety Asthma Gestational Diabetes h/o Cholelithiasis beta Thalassemia minor Obstetric History Obstetric History Primigravida. complicated by Obesity, Gestational Diabetes, PIH Past Surgical History Surgical History: No Previous Surgery Family History Narrative Family History Father has diabetes Family History: Social History Alcohol Use: No Tobacco Use: No Substance Abuse: No Allergies-Medications (Allergen,Severity, Reaction): Coded Allergies: cat dander (Verified Allergy, Mild, Itching, sneezing, 10/06/17) Home Meds Active Scripts Amoxicillin (Amoxicillin) 500 Mg Tab, 500 MG PO TID for Infection, #21 TAB 0 Refills Prov:Nury Araujo 09/28/17 Lancets 33G [place] (Lancets 33G [place]) 33 Gauge Mis, BOX .ROUTE DIRECTED for Blood Sugar Management, #1 1 Refill Check fasting and 2-hr post prandial glucose levels a total of 4 times a day Prov:Stephanie Burnett MD R2 09/22/17 Onetouch Ultra Test Strips (Onetouch Ultra Test Strips) 1 Marti Marti, BOX .ROUTE DIRECTED for Blood Sugar Management, #1 1 Refill Check fasting and 2-hr post prandial glucose levels a total of 4 times a day Prov:Stephanie Burnett MD R2 09/22/17 Glyburide (Glyburide) 2.5 Mg Tab, 2.5 MG PO HS for Blood Sugar Management, #30 TAB 0 Refills Take with meals at the same time each day Prov:EkoStephanie MD R2 09/22/17 Venlafaxine ER 24 HR (Effexor XR 24 HR) 75 Mg Cap, 75 MG PO DAILY, #30 CAP 3 Refills Prov:Rafa Garcia MD 06/03/17 W/O Vit A W/ Fe Fumar (Citranatal [place]) 27-1-260 Mg Cap, 1 CAP PO DAILY for Nutritional Supplement, #90 CAP 0 Refills Prov:Rafa Garcia MD 03/11/17 Reported Medications Albuterol 18 GM Inh (Ventolin Hfa 18 GM Inh) 90 Mcg/Act Aer, 2 PUFF INH Q4H Y for SHORTNESS OF BREATH, #1 INHALER 0 Refills 11/04/16 Albuterol Neb (Albuterol Neb) 2.5 Mg/3 Ml Neb, 2.5 MG NEB Q4HR NEB Y for SHORTNESS OF BREATH, #60 NEBULE 0 Refills 11/04/16 Review of Systems Except as stated in HPI: all other systems reviewed are Neg Physical Exam Narrative GENERAL: Well-nourished, well-developed patient. SKIN: Warm and dry. HEAD: Normocephalic and atraumatic. EYES: No scleral icterus. No injection or drainage. ENT: No nasal drainage noted. Mucous membranes pink. Airway patent. NECK: Supple, trachea midline. No JVD. CARDIOVASCULAR: Regular rate and rhythm without murmurs, gallops, or rubs. RESPIRATORY: Breath sounds equal bilaterally. No accessory muscle use. BREASTS: Bilateral exam showed no masses , no retractions, no nipple discharge. ABDOMEN/GI: Abdomen soft, non-tender, bowel sounds present, no rebound, no guarding Gravid to [40] weeks size Fundal Height: [-] GENITOURINARY: External Genitalia: intact and normal in appearance BUS glands: [wnl] Cervix: [soft] Dilatation: [3cm] Effacement: [80%] Station: [-3] Presentation: [vertex] Membranes: [intact] Uterine Contractions: [2-4 minutes] FHT's: Category: [1] Baseline: [130s] Reactive: [-] Variability: [moderate] Decels: [none] EXTREMITIES: No cyanosis or edema. BACK: Nontender without obvious deformity. No CVA tenderness. NEUROLOGICAL: Awake and alert. Motor and sensory grossly within normal limits. Five out of 5 muscle strength in all muscle groups. Normal speech. DTRs at patella wnl, no ankle clonus Caprini VTE Risk Assessment Caprini VTE Risk Assessment: No/Low Risk (score <= 1) Caprini Risk Assessment Model Point Value = 1 Point Value = 2 Point Value = 3 Point Value = 5 Age 41-60 Minor surgery BMI > 25 kg/m2 Swollen legs Varicose veins or History of unexplained or recurrent spontaneous Oral contraceptives or hormone replacement Sepsis (< 1 month) Serious lung disease, including pneumonia (< 1 month) Abnormal pulmonary function Acute myocardial infarction Congestive heart failure (< 1 month) History of inflammatory bowel disease Medical patient at bed rest Age 61-74 Arthroscopic surgery Major open surgery (> 45 min) Laparoscopic surgery (> 45 min) Malignancy Confined to bed (> 72 hours) Immobilizing plaster cast Central venous access Age >= 75 History of VTE Family history of VTE Factor V Leiden Prothrombin [id number] Lupus anticoagulant Anticardiolipin antibodies Elevated serum homocysteine Heparin-induced thrombocytopenia Other congenital or acquired thrombophilia Stroke (< 1 month) Elective arthroplasty Hip, pelvis, or leg fracture Acute spinal cord injury (< 1 month) Prophylaxis Regimen Total Risk Factor Score Risk Level Prophylaxis Regimen 0-1 Low Early ambulation 2 Moderate Order ONE of the following: *Sequential Compression Device (SCD) *Heparin 5000 units SQ BID 3-4 Higher Order ONE of the following medications: *Heparin 5000 units SQ TID *Enoxaparin/Lovenox 40 mg SQ daily (WT < 150 kg, CrCl > 30 mL/min) *Enoxaparin/Lovenox 30 mg SQ daily (WT < 150 kg, CrCl > 10-29 mL/min) *Enoxaparin/Lovenox 30 mg SQ BID (WT < 150 kg, CrCl > 30 mL/min) AND/OR *Sequential Compression Device (SCD) 5 or more Highest Order ONE of the following medications: *Heparin 5000 units SQ TID (Preferred with Epidurals) *Enoxaparin/Lovenox 40 mg SQ daily (WT < 150 kg, CrCl > 30 mL/min) *Enoxaparin/Lovenox 30 mg SQ daily (WT < 150 kg, CrCl > 10-29 mL/min) *Enoxaparin/Lovenox 30 mg SQ BID (WT < 150 kg, CrCl > 30 mL/min) AND *Sequential Compression Device (SCD) Data Data Vital Signs Reviewed: Yes Orders Orders Ob (2e) Additional Admit Info (10/17/17 07:10) Admit To Inpatient (10/17/17 ) Code Status (10/17/17 07:25) Vital Signs (Adult) AJIT.QSHIFT (10/17/17 07:25) Activity Oob Ad Lisa (10/17/17 07:25) Glyburide (Diabeta) (10/17/17 08:00) Bedside Glucose AJIT.CSUGAR (10/17/17 07:25) Insulin Human Reg Supp Scale (Novolin R (10/17/17 08:00) Bedside Glucose Q15M (10/17/17 07:25) Hypoglycemia 70 Mg/Dl Or < (10/17/17 07:25) Dextrose 50% In [place] (Vial) Inj (D50w (Vi (10/17/17 07:30) Glucagon Inj (Glucagon Inj) (10/17/17 07:30) Notify Parameters (10/17/17 07:25) Cbc No Diff, Includes Plts (10/17/17 07:25) Comprehensive Metabolic Panel (10/17/17 07:25) Uric Acid (10/17/17 07:25) Admit To Inpatient (10/17/17 ) Vital Signs (Adult) .Per protocol (10/17/17 07:25) Activity Oob Ad Lisa (10/17/17 07:25) Heart (10/17/17 07:25) Amnioinfusion (10/17/17 07:25) Urinary Catheter Management .ONCE (10/17/17 07:25) Diet Liquid (10/17/17 Breakfast) Lactated Ringer's 1000 Ml Inj (Lr 1000 M (10/17/17 07:25) Lactated Ringer's 1000 Ml Inj (Lr 1000 M (10/17/17 07:25) Sodium Chlorid 0.9% 500 Ml Inj (Ns 500 M (10/17/17 07:30) Sodium Chlor 0.9% 1000 Ml Inj (Ns 1000 M (10/17/17 07:45) Lidocaine 1% Inj (50 Ml) (Xylocaine 1% I (10/17/17 07:30) Citric Acid-Sodium Citrate Liq (Bicitra (10/17/17 07:30) Fentanyl Inj (Fentanyl Inj) (10/17/17 07:30) Fentanyl Inj (Fentanyl Inj) (10/17/17 07:30) Penicillin G Potassium Inj (Pfizerpen-G (10/17/17 08:00) Penicillin G Potassium Inj (Pfizerpen-G (10/17/17 12:00) Complete Blood Count With Diff (10/17/17 07:25) Hold Clot (10/17/17 07:25) Abo/Rh Blood Type (10/17/17 07:25) Urinalysis - C+S If Indicated (10/17/17 07:25) Drug Screen, Random Urine (10/17/17 07:25) Resp Oxygen Non Rebreathe Mask (10/17/17 ) ^ Epidural / Intrathecal Infus (10/17/17 07:25) Oxytocin 30 Units-500ml Premix (Pitocin (10/17/17 07:30) Lidocaine 1% Inj (50 Ml) (Xylocaine 1% I (10/17/17 07:30) Light Mineral Oil (Muri-Lube Oil) (10/17/17 07:30) Inpatient Certification (10/17/17 ) Inpatient Certification (10/17/17 ) Specimen To Be Collected PRN (10/17/17 07:25) Specimen To Be Collected PRN (10/17/17 07:25) Group B Strep: Positive Assessment/Plan Assessment and Plan 32 yo at 39 weeks and 3 days Presents in labor. GBS positive, will start PCN prophylaxis /maternal status reassuring 2 Gestational diabetes. Well controlled on [id number] daily Will cover with RISS 3 Gestational hypertension Check [facility] labs Andah,Sharif Collins MD Oct 17, 2017 07:49
[2017-10-17] MEDS ORDERED: fentaNYL 2MCG-BUPIV 0.125% INJ 100 ML ONE (07:56)
[2017-10-17] MEDS ORDERED: glyBURIDE 5 MG TAB PO SCH (08:00)
[2017-10-17] MEDS ORDERED: PENICILLIN G POTASSIUM INJ 5,000,000 UNITS in SODIUM CHLORIDE 0.9% INJ 100 ML IV ONE (08:00)
[2017-10-17 08:09] LABS: ALBUMIN 2.9 GM/DL (3.4-5.0); AST (GOT) 30 U/L (15-37); BLOOD UREA NITROGEN 14 MG/DL (7-18); CALCIUM 8.8 MG/DL (8.5-10.1); CHLORIDE 109 MEQ/L (98-107); CREATININE 0.78 MG/DL (0.50-1.00); GLOMERULAR FILTRATION RATE 104 ML/MIN (>89); GLUCOSE,RANDOM 70 MG/DL (74-106); SODIUM (NA) 139 MEQ/L (136-145)
[2017-10-17 08:10] LABS: ALT (GPT) 54 U/L (10-53)
[2017-10-17 08:12] LABS: ALKALINE PHOSPHATASE 257 U/L (45-117); TOTAL BILIRUBIN ADULT 0.2 MG/DL (0.2-1.0); TOTAL PROTEIN 7.4 GM/DL (6.4-8.2)
[2017-10-17 08:17] LABS: BACTERIA, URINE OCC /hpf; BILIRUBIN, URINE NEG (NEG); BLOOD, URINE LARGE (NEG); GLUCOSE,URINE NEG (NEG); KETONE, URINE NEG (NEG); MUCUS URINE FEW /lpf (OCC); NITRITE,URINE NEG (NEG); SQUAMOUS EPITHELIAL CELL URINE 11 /hpf (0-5); URINE COLOR YELLOW (YELLW/STRAW); URINE LEUKOCYTE ESTERASE SMALL (NEG)
[2017-10-17] MEDS ORDERED: ONDANSETRON HCL 4 MG/2 ML VIAL ONE (09:04)
[2017-10-17] MEDS ORDERED: DO NOT ADMINISTER ANTICOAGULANTS PRN (10:00)
[2017-10-17] MEDS ORDERED: ePHEDrine/NS 25 MG/5 ML SYRINGE IV PUSH PRN (10:00)
[2017-10-17] MEDS ORDERED: NO SYSTEM NARCOTICS PRN (10:00)
[2017-10-17] MEDS ORDERED: fentaNYL 2MCG-BUPIV 0.125% 100 ML EPIDURAL SCH (10:00)
[2017-10-17] MEDS ORDERED: OXYTOCIN 30 UNITS-500ML PREMIX 500 ML IV SCH ×2 (11:45→16:45)
[2017-10-17] MEDS: INSULIN NovoLIN REGULAR SUPPLEMENTAL SCALE SQ SCH (12:00)
[2017-10-17] MEDS ORDERED: PENICILLIN G POTASSIUM INJ 2,500,000 UNITS in SODIUM CHLORIDE 0.9% INJ 100 ML IV SCH (12:00)
[2017-10-17] MEDS ORDERED: LIDOCAINE HCL 1% 20 ML VIAL ONE (13:21)
--- NOTE | 2017-10-17 14:05 | PD.LABORPN ---
Subjective Subjective Pt denies pain. s/p epidural. Currently has no questions or concerns. Objective Vital Signs Vital Signs Date Time Temp Pulse Resp B/P (MAP) Pulse Ox O2 Delivery O2 Flow Rate FiO2 10/17/17 13:45 16 10/17/17 13:40 102 10/17/17 13:40 104 10/17/17 13:35 98 10/17/17 13:35 99 10/17/17 13:30 101 10/17/17 13:30 108 166/99 (121) 10/17/17 13:30 109 10/17/17 13:10 96 10/17/17 13:10 94 10/17/17 13:05 102 10/17/17 13:05 104 10/17/17 13:00 97 163/94 (117) 10/17/17 13:00 96 10/17/17 13:00 98 10/17/17 12:45 16 10/17/17 12:35 93 10/17/17 12:35 96 10/17/17 12:31 90 151/81 (104) 10/17/17 12:30 94 10/17/17 12:30 93 10/17/17 12:15 98.2 18 10/17/17 12:10 89 10/17/17 12:10 86 10/17/17 12:05 88 10/17/17 12:05 88 10/17/17 12:00 90 133/80 (97) 10/17/17 12:00 90 10/17/17 12:00 90 10/17/17 11:45 18 10/17/17 11:40 92 10/17/17 11:40 92 10/17/17 11:35 88 10/17/17 11:35 89 10/17/17 11:30 86 10/17/17 11:30 85 139/74 (95) 10/17/17 11:30 85 10/17/17 11:01 83 135/70 (91) 10/17/17 11:00 96 10/17/17 11:00 93 10/17/17 10:45 18 10/17/17 10:40 84 10/17/17 10:40 83 10/17/17 10:35 81 10/17/17 10:35 81 10/17/17 10:30 82 10/17/17 10:30 86 10/17/17 10:30 82 144/72 (96) 10/17/17 10:14 16 10/17/17 10:10 84 10/17/17 10:10 82 10/17/17 10:05 81 10/17/17 10:05 81 10/17/17 10:00 81 142/80 (100) 10/17/17 10:00 82 10/17/17 10:00 78 10/17/17 09:40 80 10/17/17 09:40 79 10/17/17 09:35 82 10/17/17 09:35 81 10/17/17 09:30 76 141/78 (99) 10/17/17 09:30 74 10/17/17 09:10 70 10/17/17 09:05 78 10/17/17 09:01 67 130/67 (88) 10/17/17 09:00 98.0 18 10/17/17 09:00 81 10/17/17 08:55 80 135/87 (103) 10/17/17 08:55 81 10/17/17 08:51 78 119/66 (83) 10/17/17 08:50 88 10/17/17 08:46 71 143/61 (88) 10/17/17 08:45 91 10/17/17 08:40 96 10/17/17 08:40 89 141/77 (98) 10/17/17 08:35 89 145/76 (99) 10/17/17 08:35 88 10/17/17 08:30 96 10/17/17 08:30 91 10/17/17 08:30 91 148/77 (100) 10/17/17 08:25 97 142/69 (93) 10/17/17 08:25 93 10/17/17 08:25 97 10/17/17 08:22 96 135/70 (91) 10/17/17 08:21 94 154/74 (100) 10/17/17 08:20 98 10/17/17 08:20 100 10/17/17 08:15 90 157/88 (111) 10/17/17 08:15 92 10/17/17 08:15 88 10/17/17 08:10 94 10/17/17 08:10 94 155/100 (118) 10/17/17 08:10 89 10/17/17 08:05 90 10/17/17 08:03 88 142/85 (104) 10/17/17 08:00 85 Objective Pelvic Exam: Cervix: midposition Dilatation: 8 Effacement: 100 Station:-1 Membranes: AROm at 10:12 on10/17 Uterine Contractions: Q2min FHT's: Category:1 Baseline: 140 Reactive:yes Variability:mod Decels: none Weeks Gestation: 39 Artificial rupture of membrane: Yes Artificial ROM date: Oct 17, 2017 Artifical ROM time: 10:12 Assessment/Plan Problem List: (1) 39 weeks gestation of ICD Codes: Z3A.39 - 39 weeks gestation of Status: Acute Plan: Pt in active labor at 39/3 wks gestation. s/p epidural. Denies pain GBS positive. continue to monitor labor progression FHT reassuring, cat 1 Keely Arellano MD, R1 Oct 17, 2017 14:05
[2017-10-17] MEDS ORDERED: OXYTOCIN 10 UNIT/ML AMP ONE (15:58)
[2017-10-17] MEDS ORDERED: DIPHTH/TETANUS/ACEL PERTUSSIS (BOOSTER) 0.5 ML VIAL/PFS IM ONE (16:00)
[2017-10-17] MEDS ORDERED: MEASLES, MUMPS, RUBELLA VACCINE 0.5 ML VIAL SQ ONE (16:00)
--- NOTE | 2017-10-17 16:36 | PD.OB.DELI ---
Weeks gestation: 39 Pt started active labor?: Yes Medical induction of labor?: No Artificial rupture of membrane: Yes Artificial ROM date: Oct 17, 2017 Artifical ROM time: 10:12 Anesthesia: Epidural Episiotomy: Midline Vaginal Delivery: Normal Presentation: Occiput posterior Nuchal Cord: x1 Delayed cord clamping (45 sec): No : Male Delivery date: Oct 17, 2017 Delivery time: 15:54 One Minute : 2 Five Minute : 8 Weight: 3745 Placenta: Spontaneous delivery Laceration: Episiotomy, 2 deg Repair: Chromic running (2.0 run), Vicryl interrupted (3.0 for stitches) Estimated blood loss: 300 Additional Information Supervised by Dr. Feldman moderate meconium Keely Arellano MD, R1 Oct 17, 2017 16:36
[2017-10-17] MEDS ORDERED: BENZOCAINE 20% TOPICAL SPRAY 60 ML CAN TOPICAL PRN (16:45)
[2017-10-17] MEDS ORDERED: SODIUM CHLORIDE 0.9% FLUSH 10 ML FLUSH IV FLUSH PRN (16:45)
[2017-10-17] MEDS ORDERED: ONDANSETRON ODT 4 MG TAB PO PRN (16:45)
[2017-10-17] MEDS ORDERED: ZOLPIDEM TARTRATE 5 MG TAB PO PRN (16:45)
[2017-10-17] MEDS ORDERED: oxyCODONE/ACETAMINOPHEN 5 MG/325 MG TAB PO PRN (16:45)
[2017-10-17] MEDS ORDERED: ALUMINUM/MAGNESIUM/SIMETH 30 ML CUP PO PRN (16:45)
[2017-10-17] MEDS: IBUPROFEN 800 MG TAB PO PRN ×2 (18:29→18:35)
[2017-10-17] MEDS: ACETAMINOPHEN 325 MG TAB PO PRN (18:34)
[2017-10-17] MEDS ORDERED: AMMONIA AROMATIC INHALANT 0.33 ML ONE (20:27)
[2017-10-17] MEDS: WITCH HAZEL 50%/GLYCERIN 12.5% 40 PAD JAR TOPICAL PRN (20:44)
[2017-10-17] MEDS ORDERED: SODIUM CHLORIDE 0.9% FLUSH 10 ML FLUSH IV FLUSH SCH (21:00)
[2017-10-18] MEDS: ACETAMINOPHEN 325 MG TAB PO PRN (04:24)
--- NOTE | 2017-10-18 07:56 | HHI.OB ---
Subjective Remarks 32 year old female s/p with episiotomy at 39 wks gestation, PPD1. AFVSS. Patient reports she is feeling well. Bleeding is decreasing and pain is well-controlled. She is breast feeding and bonding well with baby. Ambulating without difficulties. She is tolerating a diet without nausea or vomiting. She has not had a bowel movement. She has passed gas. Denies chest pain, dysuria, shortness of breath, or calf pain. Objective Vitals/I&O Vital Signs Date Time Temp Pulse Resp B/P (MAP) Pulse Ox O2 Delivery O2 Flow Rate FiO2 10/17/17 20:20 140/76 (97) 10/17/17 20:20 97.7 90 16 10/17/17 19:40 18 10/17/17 19:30 114 155/85 (108) 10/17/17 19:25 20 10/17/17 19:16 99 154/78 (103) 10/17/17 19:00 109 141/116 (124) 10/17/17 18:46 115 143/85 (104) 10/17/17 18:31 105 146/87 (106) 10/17/17 18:16 117 118/97 (104) 10/17/17 18:08 16 10/17/17 18:00 99 137/82 (100) 10/17/17 17:55 16 10/17/17 17:45 91 146/83 (104) 10/17/17 17:40 18 10/17/17 17:30 108 133/84 (100) 10/17/17 17:25 18 10/17/17 17:15 105 140/76 (97) 10/17/17 17:05 20 10/17/17 17:02 130 137/77 (97) 10/17/17 17:01 75 156/131 (139) 10/17/17 16:45 111 161/90 (113) 10/17/17 16:44 106 157/84 (108) 10/17/17 16:35 98.1 20 10/17/17 16:30 112 150/81 (104) 10/17/17 16:01 107 155/85 (108) 10/17/17 14:40 113 10/17/17 14:40 109 10/17/17 14:35 108 10/17/17 14:35 106 10/17/17 14:30 97 10/17/17 14:30 100 10/17/17 14:30 96 158/91 (113) 10/17/17 14:10 100 10/17/17 14:10 100 10/17/17 14:05 100 10/17/17 14:05 99 10/17/17 14:00 99 10/17/17 14:00 93 162/97 (118) 10/17/17 14:00 94 10/17/17 13:45 16 10/17/17 13:40 102 10/17/17 13:40 104 10/17/17 13:35 98 10/17/17 13:35 99 10/17/17 13:30 101 10/17/17 13:30 108 166/99 (121) 10/17/17 13:30 109 10/17/17 13:10 96 10/17/17 13:10 94 10/17/17 13:05 102 10/17/17 13:05 104 10/17/17 13:00 97 163/94 (117) 10/17/17 13:00 96 10/17/17 13:00 98 10/17/17 12:45 16 10/17/17 12:35 93 10/17/17 12:35 96 10/17/17 12:31 90 151/81 (104) 10/17/17 12:30 94 10/17/17 12:30 93 10/17/17 12:15 98.2 18 10/17/17 12:10 89 10/17/17 12:10 86 10/17/17 12:05 88 10/17/17 12:05 88 10/17/17 12:00 90 133/80 (97) 10/17/17 12:00 90 10/17/17 12:00 90 10/17/17 11:45 18 10/17/17 11:40 92 10/17/17 11:40 92 10/17/17 11:35 88 10/17/17 11:35 89 10/17/17 11:30 86 10/17/17 11:30 85 139/74 (95) 10/17/17 11:30 85 10/17/17 11:01 83 135/70 (91) 10/17/17 11:00 96 10/17/17 11:00 93 10/17/17 10:45 18 10/17/17 10:40 84 10/17/17 10:40 83 10/17/17 10:35 81 10/17/17 10:35 81 10/17/17 10:30 82 10/17/17 10:30 86 10/17/17 10:30 82 144/72 (96) 10/17/17 10:14 16 10/17/17 10:10 84 10/17/17 10:10 82 10/17/17 10:05 81 10/17/17 10:05 81 10/17/17 10:00 81 142/80 (100) 10/17/17 10:00 82 10/17/17 10:00 78 10/17/17 09:40 80 10/17/17 09:40 79 10/17/17 09:35 82 10/17/17 09:35 81 10/17/17 09:30 76 141/78 (99) 10/17/17 09:30 74 10/17/17 09:10 70 10/17/17 09:05 78 10/17/17 09:01 67 130/67 (88) 10/17/17 09:00 98.0 18 10/17/17 09:00 81 10/17/17 08:55 80 135/87 (103) 10/17/17 08:55 81 10/17/17 08:51 78 119/66 (83) 10/17/17 08:50 88 10/17/17 08:46 71 143/61 (88) 10/17/17 08:45 91 10/17/17 08:40 96 10/17/17 08:40 89 141/77 (98) 10/17/17 08:35 89 145/76 (99) 10/17/17 08:35 88 10/17/17 08:30 96 10/17/17 08:30 91 10/17/17 08:30 91 148/77 (100) 10/17/17 08:25 97 142/69 (93) 10/17/17 08:25 93 10/17/17 08:25 97 10/17/17 08:22 96 135/70 (91) 10/17/17 08:21 94 154/74 (100) 10/17/17 08:20 98 12/31/17 08:20 100 10/17/17 08:15 90 157/88 (111) 10/17/17 08:15 92 10/17/17 08:15 88 10/17/17 08:10 94 10/17/17 08:10 94 155/100 (118) 10/17/17 08:10 89 10/17/17 08:05 90 10/17/17 08:03 88 142/85 (104) 10/17/17 08:00 85 Objective Remarks GENERAL: Well-nourished, well-developed patient. CARDIOVASCULAR: Regular rate and rhythm without murmurs, gallops, or rubs. RESPIRATORY: Breath sounds equal bilaterally. No accessory muscle use. ABDOMEN/GI: Abdomen soft, non-tender. Fundus: Firm, non-tender at umbilicus. GENITOURINARY: Light to moderate bleeding. EXTREMITIES: No cyanosis or edema, non-tender, without signs of DVT. Medications and IVs Current Medications Medications (Trade) Dose Ordered Sig/Kennedy Route Start Time Stop Time Status Last Admin (Diabeta) 5 mg DAILY@08 PO 10/17/17 08:00 (NovoLIN R SUPPLEMENTAL SCALE) 1 TIDAC SQ 10/17/17 08:00 (Glucagon Inj) 1 mg STAT PRN IM 10/17/17 07:30 (Xylocaine 1% Inj (50 ml)) 0.1 ml UNSCH X1 PRN I-DERMAL 10/17/17 07:30 10/20/17 07:29 (Bicitra Liq) 30 ml CATALOGUE MAKER PO 10/17/17 07:30 10/21/17 07:29 (Xylocaine 1% Inj (50 ml)) 10 ml UNSCH X1 PRN INFIL 10/17/17 07:30 10/19/17 07:29 (Muri-Lube Oil) 10 ml UNSCH PRN TOPICAL 10/17/17 07:30 Miscellaneous Information No systemic narcotics to be given except... UNSCH PRN .XX 10/17/17 10:00 10/18/17 09:59 Miscellaneous Information DO NOT ADMINISTER ANY ANTICOAGUL... UNSCH PRN .XX 10/17/17 10:00 10/18/17 09:59 (NS Flush) 2 ml BID IV FLUSH 10/17/17 21:00 (NS Flush) 2 ml UNSCH PRN IV FLUSH 10/17/17 16:45 (Tylenol) 650 mg Q4H PRN PO 10/17/17 16:45 10/18/17 04:24 (Motrin) 800 mg Q8H PRN PO 10/17/17 16:45 10/17/17 18:29 (Percocet 5-325 Mg) 1 tab Q4H PRN PO 10/17/17 16:45 (Americaine 20% Top Spr) 1 spray Q4H PRN TOPICAL 10/17/17 16:45 10/17/17 20:44 (Tucks Pads) 1 applic QID PRN TOPICAL 10/17/17 16:45 10/17/17 20:44 (Jamee-Colace) 2 tab Q12H PRN PO 10/17/17 16:45 (Ambien) 5 mg HS PRN PO 10/17/17 16:45 (Mag-Al Plus Susp Liq) 15 ml Q8H PRN PO 10/17/17 16:45 (Zofran Odt) 4 mg Q6H PRN PO 10/17/17 16:45 10/17/17 16:58 (Percocet 5-325 Mg) 2 tab Q4H PRN PO 10/17/17 16:45 Assessment/Plan Assessment and Plan 32 yo female s/p with episiotomy, GBS positive x2 PCN, PPD 1 - AFVSS - Continue routine care - Motrin PRN pain - Encourage OOB - Pelvic rest x 6 wks. - Contraception: not interested, patient reports that she will "fertility awareness" - Anticipate D/C tomorrow Ailyn Young MD R1 Oct 18, 2017 07:56
[2017-10-18] MEDS: oxyCODONE/ACETAMINOPHEN 5 MG/325 MG TAB PO PRN ×2 (17:43→22:50)
[2017-10-18] MEDS: DOCUSATE SODIUM 50 MG/SENNA 8.6 MG TAB PO PRN (17:43)
[2017-10-19] VITALS: RESP 17
[2017-10-19] MEDS: oxyCODONE/ACETAMINOPHEN 5 MG/325 MG TAB PO PRN ×2 (06:46→11:33)
[2017-10-19] MEDS: INSULIN NovoLIN REGULAR SUPPLEMENTAL SCALE SQ SCH (08:00)
--- NOTE | 2017-10-19 08:10 | HHI.OB ---
Subjective Post Day: 2 Remarks day #2. AFVSS overnight. Pain controlled. Decreased lochia. Denies dysuria. No breast tenderness. She is feeding the baby via breast. Appetite good. No nausea or vomiting. + flatus. Ambulating well. Denies calf pain, shortness of breath, or cough. Otherwise, she is doing well this morning and has no other complaints. Objective Vitals/I&O Vital Signs Date Time Temp Pulse Resp B/P (MAP) Pulse Ox O2 Delivery O2 Flow Rate FiO2 10/19/17 00:00 17 Objective Remarks GENERAL: Well-nourished, well-developed patient. CARDIOVASCULAR: Regular rate and rhythm without murmurs, gallops, or rubs. RESPIRATORY: Breath sounds equal bilaterally. No accessory muscle use. ABDOMEN/GI: Abdomen soft, non-tender. Fundus: Firm, non-tender at umbilicus. GENITOURINARY: Light to moderate bleeding. EXTREMITIES: No cyanosis or edema, non-tender, without signs of DVT. Medications and IVs Current Medications Medications (Trade) Dose Ordered Sig/Kennedy Route Start Time Stop Time Status Last Admin (Diabeta) 5 mg DAILY@08 PO 10/17/17 08:00 (NovoLIN R SUPPLEMENTAL SCALE) 1 TIDAC SQ 10/17/17 08:00 (Glucagon Inj) 1 mg STAT PRN IM 10/17/17 07:30 (Xylocaine 1% Inj (50 ml)) 0.1 ml UNSCH X1 PRN I-DERMAL 10/17/17 07:30 10/20/17 07:29 (Bicitra Liq) 30 ml RADIOISOTOPE PRODUCTION OPERATOR PO 10/17/17 07:30 10/21/17 07:29 (Muri-Lube Oil) 10 ml UNSCH PRN TOPICAL 10/17/17 07:30 (NS Flush) 2 ml BID IV FLUSH 10/17/17 21:00 (NS Flush) 2 ml UNSCH PRN IV FLUSH 10/17/17 16:45 (Tylenol) 650 mg Q4H PRN PO 10/17/17 16:45 10/18/17 04:24 (Motrin) 800 mg Q8H PRN PO 10/17/17 16:45 10/17/17 18:29 (Percocet 5-325 Mg) 1 tab Q4H PRN PO 10/17/17 16:45 (Americaine 20% Top Spr) 1 spray Q4H PRN TOPICAL 10/17/17 16:45 10/17/17 20:44 (Tucks Pads) 1 applic QID PRN TOPICAL 10/17/17 16:45 10/17/17 20:44 (Jamee-Colace) 2 tab Q12H PRN PO 10/17/17 16:45 10/18/17 17:43 (Ambien) 5 mg HS PRN PO 10/17/17 16:45 (Mag-Al Plus Susp Liq) 15 ml Q8H PRN PO 10/17/17 16:45 (Zofran Odt) 4 mg Q6H PRN PO 10/17/17 16:45 10/17/17 16:58 (Percocet 5-325 Mg) 2 tab Q4H PRN PO 10/17/17 16:45 10/19/17 06:46 Assessment/Plan Problem List: (1) 39 weeks gestation of ICD Codes: Z3A.39 - 39 weeks gestation of Status: Acute Plan: Pt in active labor at 39/3 wks gestation. s/p epidural. Denies pain GBS positive. continue to monitor labor progression FHT reassuring, cat 1 (2) Vaginal delivery ICD Codes: O80 - Encounter for full-term uncomplicated delivery Assessment and Plan 32 yo female s/p with episiotomy, GBS positive x2 PCN, PPD 2 1. Vaginal delivery @39 wks - Continue routine care - Motrin PRN pain - Encourage OOB - Pelvic rest x 6 wks. - Contraception: not interested, patient reports that she will "fertility awareness" 2. HTN - Possibly induced, began at 38 wks per patient report - BP since midnight > 140/90. BP this AM was 148/86. Recommend PCP f/u to further assess and monitor. 3. UTI - UA +, Gram culture shows Gram negative rods - Keflex 500 BID for 7 days D/C today Candis Vallejo MD R1 Oct 19, 2017 08:10
[2017-10-19] MEDS ORDERED: PERI PO (08:26)
--- NOTE | 2017-10-19 08:28 | HHI.DCPOC ---
Discharge Care Plan Diagnosis: (1) Vaginal delivery Report Symptoms to Your Doctor -Temperature above 100.5 degrees -Redness, of incision or excessive or foul smelling drainage -Unusual pain or calf pain -Increased vaginal bleeding -Painful or difficulty urinating -Feelings of extreme sadness or anxiety after 2 weeks Goals to Promote Your Health * To prevent worsening of your condition and complications * To maintain your health at the optimal level PELVIC REST FOR 6 WEEKS. NO SEXUAL ACTIVITY. Directions to Meet Your Goals Take your medications as prescribed Follow your dietary instruction Follow activity as directed Ensure plenty of rest for recovery Drink fluids for hydration Keep your appointments as scheduled Take your immunizations and boosters as scheduled If your symptoms worsen call your PCP, if no PCP go to Urgent Care Center or Emergency Room Smoking is Dangerous to Your Health. Avoid second hand smoke Call the 24-hour crisis hotline for domestic abuse at Candis Vallejo MD R1 Oct 19, 2017 08:28
[2017-10-19] MEDS ORDERED: NITR100C4 PO (08:52)
[2017-10-19] MEDS ORDERED: CEPH-460 PO (09:09)
[2017-10-19] MEDS ORDERED: ACET325T15 PO (09:10)
[2017-10-19] MEDS: DOCUSATE SODIUM 50 MG/SENNA 8.6 MG TAB PO PRN (11:33)
[2017-10-19] MEDS ORDERED: OXYC1TAB63 PO ×2 (12:37→12:44)
[2017-10-19] MEDS: WITCH HAZEL 50%/GLYCERIN 12.5% 40 PAD JAR TOPICAL PRN (15:27)
[2017-10-25] MEDS ORDERED: VENL75XR PO (08:45)
== END 2017-10-19 15:33 | disposition home or self-care (01) | DRG 774 ==
LOC: HOBED 06:38 → H2EB 07:19 → H1EA 19:50
PROVIDERS: ADMIT Obstetrics & Gynecology; ATTEND Obstetrics & Gynecology
PROC: 10E0XZZ Delivery of Products of Conception, External Approach (ICD-10-PCS; principal; 2017-10-17)
PROC: 10907ZC Drainage of Amniotic Fluid, Therapeutic from Products of Conception, Via Natural or Artificial Opening (ICD-10-PCS; 2017-10-17)
PROC: 0W8NXZZ Division of Female Perineum, External Approach (ICD-10-PCS; 2017-10-17)
DX: O24.425 Gestational diabetes mellitus in childbirth, controlled by oral hypoglycemic drugs (principal); O75.3 Other infection during labor; O99.12 Other diseases of the blood and blood-forming organs and certain disorders involving the immune mechanism complicating childbirth; O99.344 Other mental disorders complicating childbirth; F32.9 Major depressive disorder, single episode, unspecified; F41.9 Anxiety disorder, unspecified; O13.4 Gestational [pregnancy-induced] hypertension without significant proteinuria, complicating childbirth; J45.909 Unspecified asthma, uncomplicated; O99.52 Diseases of the respiratory system complicating childbirth; D56.3 Thalassemia minor; E66.9 Obesity, unspecified; O99.210 Obesity complicating pregnancy, unspecified trimester; O99.824 Streptococcus B carrier state complicating childbirth; O69.81X0 Labor and delivery complicated by cord around neck, without compression, not applicable or unspecified; O77.0 Labor and delivery complicated by meconium in amniotic fluid; Z37.0 Single live birth; Z3A.39 39 weeks gestation of pregnancy; Z83.3 Family history of diabetes mellitus
CPT/HCPCS: 59025; 80053; 80307; 81001; 82805; 84550; 85025; 86900; 86901; 87077; 87086; 87186; J2405; J2540; J2590; J7120

== ENCOUNTER 2017-11-04 02:21 | Inpatient (IN) | payer MEDICAID ==
[2017-11-04 03:38] LABS: AUTOMATED NEUTROPHIL # 10.7 TH/MM3 (1.8-7.7); BASOPHIL % 0.4 % (0.0-2.0); EOSINOPHIL # 0.1 TH/MM3 (0-0.4); EOSINOPHIL % 0.8 % (0.0-4.0); HEMATOCRIT 29.4 % (35.0-46.0); HEMO FLAGS DIFF FINAL; HEMOGLOBIN 9.3 GM/DL (11.6-15.3); LYMPH % 6.8 % (9.0-44.0); LYMPHOCYTE # 0.8 TH/MM3 (1.0-4.8); MEAN CELL VOLUME 65.7 FL (80.0-100.0); MEAN CORPUSCULAR HEMOGLOBIN 20.8 PG (27.0-34.0); MEAN CORPUSCULAR HGB CONC 31.6 % (32.0-36.0); MEAN PLATELET VOLUME 7.9 FL (7.0-11.0); MONO % 3.6 % (0.0-8.0); MONOCYTE # 0.4 TH/MM3 (0-0.9); NEUT % 88.4 % (16.0-70.0); PLATELET COUNT 403 TH/MM3 (150-450); RED BLOOD COUNT 4.47 MIL/MM3 (4.00-5.30); WHITE BLOOD COUNT 12.1 TH/MM3 (4.0-11.0)
[2017-11-04 04:17] LABS: ALBUMIN 3.5 GM/DL (3.4-5.0); ALKALINE PHOSPHATASE 225 U/L (45-117); ALT (GPT) 109 U/L (10-53); ANION GAP 7 MEQ/L (5-15); AST (GOT) 175 U/L (15-37); BICARBONATE 26.5 MEQ/L (21.0-32.0); BLOOD UREA NITROGEN 15 MG/DL (7-18); CALCIUM 8.2 MG/DL (8.5-10.1); CHLORIDE 109 MEQ/L (98-107); CREATINE KINASE 264 U/L (26-192); CREATININE 0.83 MG/DL (0.50-1.00); GLOMERULAR FILTRATION RATE 97 ML/MIN (>89); GLUCOSE,RANDOM 117 MG/DL (74-106); LIPASE 204 U/L (73-393); SODIUM (NA) 142 MEQ/L (136-145); TOTAL BILIRUBIN ADULT 0.6 MG/DL (0.2-1.0); TOTAL PROTEIN 7.3 GM/DL (6.4-8.2); TROPONIN I 0.02 NG/ML (0.02-0.05)
[2017-11-04] MEDS: FAMOTIDINE 20 MG/2 ML VIAL IV PUSH (04:23)
[2017-11-04] MEDS: ONDANSETRON HCL 4 MG/2 ML VIAL IV PUSH (04:23)
[2017-11-04 04:31] LABS: CKMB 2.1 NG/ML (0.5-3.6); CKMB % 0.8 % (0.0-4.0)
[2017-11-04] MEDS ORDERED: LACTULOSE SYRUP 20 GM/30 ML CUP PO (09:30)
[2017-11-04] MEDS ORDERED: ONDANSETRON HCL 4 MG/2 ML VIAL IVP (09:30)
[2017-11-04] MEDS ORDERED: BISACODYL 10 MG SUPP RECTAL (09:30)
[2017-11-04] MEDS ORDERED: MAGNESIUM HYDROXIDE SUSP 30 ML CUP PO (09:30)
[2017-11-04] MEDS ORDERED: SENNOSIDES 8.6 MG TAB PO (09:30)
[2017-11-04] MEDS ORDERED: SODIUM CHLORIDE 0.9% FLUSH 10 ML FLUSH IV FLUSH (09:30)
[2017-11-04] MEDS ORDERED: ACETAMINOPHEN 325 MG TAB PO (09:30)
[2017-11-04] MEDS ORDERED: NALOXONE HCL 0.4 MG/ML AMP IV PUSH (09:30)
[2017-11-04] MEDS: PIPERACIL-TAZO 3.375 GM PREMIX 50 ML IV (10:22)
[2017-11-04] MEDS: SODIUM CHLOR 0.9% 1000 ML INJ 1,000 ML IV ×2 (10:22→19:26)
[2017-11-04] MEDS: cefTRIAXone INJ 2,000 MG in SODIUM CHLORIDE 0.9% INJ 100 ML IV (11:17)
[2017-11-04] MEDS: SODIUM CHLORIDE 0.9% FLUSH 10 ML FLUSH IV FLUSH (21:15)
[2017-11-04] MEDS ORDERED: POVIDONE IODINE 5% (ANTISEPSIS KIT) 4 APPLICATIONS EACH NARE (21:45)
[2017-11-04] MEDS ORDERED: LACTATED RINGER'S 1000 ML IV (21:45)
[2017-11-04] MEDS ORDERED: METOPROLOL TARTRATE 25 MG TAB PO (21:45)
[2017-11-04] MEDS ORDERED: CHLORHEXIDINE GLUCONATE 2 % 1 PACK (2 CLOTHS) TOPICAL (21:45)
[2017-11-04] MEDS ORDERED: SODIUM CHLORID 0.9% 500 ML IV (21:45)
[2017-11-05] MEDS: MORPHINE SULFATE 4 MG/ML INJ IV PUSH ×2 (00:41→08:50)
[2017-11-05] MEDS: SODIUM CHLOR 0.9% 1000 ML INJ 1,000 ML IV (03:52)
[2017-11-05] MEDS: SODIUM CHLORIDE 0.9% FLUSH 10 ML FLUSH IV FLUSH (08:49)
[2017-11-05 09:07] LABS: AUTOMATED NEUTROPHIL # 2.3 TH/MM3 (1.8-7.7); BASOPHIL # 0.1 TH/MM3 (0-0.2); BASOPHIL % 1.4 % (0.0-2.0); EOSINOPHIL # 0.2 TH/MM3 (0-0.4); EOSINOPHIL % 4.2 % (0.0-4.0); HEMO FLAGS DIFF FINAL; HEMOGLOBIN 8.9 GM/DL (11.6-15.3); LYMPH % 32.2 % (9.0-44.0); LYMPHOCYTE # 1.3 TH/MM3 (1.0-4.8); MEAN CELL VOLUME 66.1 FL (80.0-100.0); MEAN CORPUSCULAR HGB CONC 31.7 % (32.0-36.0); MEAN PLATELET VOLUME 8.2 FL (7.0-11.0); MONO % 5.6 % (0.0-8.0); MONOCYTE # 0.2 TH/MM3 (0-0.9); NEUT % 56.6 % (16.0-70.0); PLATELET COUNT 390 TH/MM3 (150-450); RED BLOOD COUNT 4.24 MIL/MM3 (4.00-5.30); RED CELL DISTRIBUTION WIDTH 18.2 % (11.6-17.2); WHITE BLOOD COUNT 4.1 TH/MM3 (4.0-11.0)
[2017-11-05 09:37] LABS: ALBUMIN 3.3 GM/DL (3.4-5.0); ANION GAP 9 MEQ/L (5-15); AST (GOT) 95 U/L (15-37); BLOOD UREA NITROGEN 8 MG/DL (7-18); CALCIUM 8.8 MG/DL (8.5-10.1); CHLORIDE 112 MEQ/L (98-107); CREATININE 0.63 MG/DL (0.50-1.00); GLOMERULAR FILTRATION RATE 133 ML/MIN (>89); GLUCOSE,RANDOM 83 MG/DL (74-106); POTASSIUM 3.7 MEQ/L (3.5-5.1); SODIUM (NA) 144 MEQ/L (136-145)
[2017-11-05 09:41] LABS: ALKALINE PHOSPHATASE 247 U/L (45-117); ALT (GPT) 155 U/L (10-53); TOTAL BILIRUBIN ADULT 0.3 MG/DL (0.2-1.0); TOTAL PROTEIN 6.8 GM/DL (6.4-8.2)
[2017-11-05] MEDS: cefTRIAXone INJ 2,000 MG in SODIUM CHLORIDE 0.9% INJ 100 ML IV (11:00)
[2017-11-05] MEDS ORDERED: ACETAMINOPHEN 1000 MG/100 ML 100 ML IV (11:33)
[2017-11-05] MEDS: ceFAZolin 2 GM PREMIX 50 ML (11:41)
[2017-11-05] MEDS: BUPIVACAINE/EPINEPHRINE 0.5% 50 ML VIAL (11:45)
[2017-11-05] MEDS ORDERED: LIDOCAINE HCL 1% PF 5 ML SYRINGE OTHER (12:00)
[2017-11-05] MEDS ORDERED: ROCURONIUM INJ 50 MG/5 ML SYRINGE IV PUSH (12:00)
[2017-11-05] MEDS ORDERED: ONDANSETRON HCL 4 MG/2 ML VIAL IV (12:00)
[2017-11-05] MEDS ORDERED: PROPOFOL 200 MG/20 ML AMP IV (12:00)
[2017-11-05] MEDS ORDERED: PHENYLEPH/NS 1000 MCG/10 ML SYR IV (12:00)
[2017-11-05] MEDS ORDERED: GLYCOPYRROLATE 1 MG/5 ML SYRINGE IV PUSH (12:00)
[2017-11-05] MEDS ORDERED: NEOSTIGMINE 5 MG/5 ML SYRINGE IV PUSH (12:00)
[2017-11-05] MEDS ORDERED: DO NOT ADM ANY ANTICOAGULANT DRUGS (12:49)
[2017-11-05] MEDS: *MEPERIDINE 25 MG INJ VIAL PERIprocedural Use ONLY (13:00)
== END 2017-11-05 16:55 | disposition home or self-care (01) | DRG 769 ==
LOC: NEPC 02:21 → NEDA 09:22 → N05B 14:23
PROC: 0FT44ZZ Resection of Gallbladder, Percutaneous Endoscopic Approach (ICD-10-PCS; principal; 2017-11-05 11:26)
PROC: 0FB04ZX Excision of Liver, Percutaneous Endoscopic Approach, Diagnostic (ICD-10-PCS; 2017-11-05 11:26)
DX: O99.63 Diseases of the digestive system complicating the puerperium (principal); K80.00 Calculus of gallbladder with acute cholecystitis without obstruction; R94.5 Abnormal results of liver function studies; D56.3 Thalassemia minor; J45.909 Unspecified asthma, uncomplicated; M79.7 Fibromyalgia; Z87.891 Personal history of nicotine dependence
CPT/HCPCS: 71045; 74181; 76377; 76705; 80053; 82550; 82552; 83690; 84484; 85025; 88304; 88307; 88313; 93005; 96374; 96375; 99285-25